=== PATIENT | male | born 1955 | race Caucasian/White ===

== ENCOUNTER → 2019-08-26 16:49 | Outpatient (CLI) | payer BC, SELFPAY ==
--- NOTE | ~2019-08-26 | XR_ITS ---
EXAMINATION: XR lumbar spine min 4V DATE: 08/26/2019 18:08 INDICATION: Sciatica, left-sided low back pain TECHNIQUE: Anteroposterior, lateral, and bilateral oblique views of the lumbar spine, and cone-down l ateral view of the lumbosacral junction were obtained.: AP view of the sacrum is also obtained. COMPARISON: None. FINDINGS: There is mild loss of intervertebral disc space height at L4-5 and L5-S1. The vertebral bod y heights are normal. There is no fracture. Small degenerative osteophytes project from the anterior endplates of multiple vertebral bodies. There is moderate facet osteoarthritis of the lower lumbar sp ine. IMPRESSION: 1. Mild lumbar spondylosis without acute findings. Reviewed, dictated and finalized at location A.
== END ==
PROVIDERS: PCP Family Medicine; Visit Provider Family Medicine
DX: M54.30 Sciatica, unspecified side (principal); M47.816 Spondylosis without myelopathy or radiculopathy, lumbar region
CPT/HCPCS: 72110

== ENCOUNTER 2019-09-18 06:42 | Observation (INO) | payer BC, SELFPAY ==
[2019-09-18 06:46] VITALS: BP 182/100; PULSE 87; RESP 20; TEMP 36.9; O2SAT 100
--- NOTE | 2019-09-18 07:22 | ED.BACK ---
HPI - Back Pain/Injury General Chief Complaint: Back Pain/Injury Stated Complaint: L HIP PAIN Time Seen by Provider: 09/18/19 07:01 History of Present Illness HPI Narrative: Patient presents with his for ongoing left sciatica. Started a month ago without injury. He initially had pain management and an x-ray. Then he had an MRI with Dr. Haines. It shows spinal stenosis at the lower lumbar area. He is on [place] and is not helping the pain. He is unable to lie to sleep he still has difficulty standing. The pain starts in his left hip goes down to the back of his knee calf and his foot has some tingling. He has had no urinary or fecal incontinence. He has had no urinary or fecal retention. He does have some constipation. 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 He is not able to work currently. He has not been sick denies fever cough chills and sweats. Appetite is good. Surgeries include circumcision tonsillectomy wisdom teeth. He does not smoke he occasionally drinks he does not do marijuana. MD elicited complaint: back pain Pertinent past history: prior back pain Onset (ago): month(s) Timing: constant Severity: severe Pain scale (0-10): 8 Similar Symptoms Previously: Yes Quality: aching Location: lumbar spine Radiation: left upper leg and left leg below the knee Exacerbating factors: movement and walking Relieving factors: none Related Data Home Medications Medication Instructions Recorded Confirmed fexofenadine-pseudoephedrine ER 1 tablet PO DAILY 08/26/19 08/26/19 180 mg-240 mg tablet,ext.release 24 hr Allergies Allergy/AdvReac Type Severity Reaction Status Date / Time latex Allergy Unknown Skin Verified 09/18/19 07:03 Reaction Review of Systems Review of Systems: Narrative: CONSTITUTIONAL: Denies fever, chills, or sweats. EYES: Denies visual changes, redness, or discharge. ENT: Denies rhinorrhea, congestion, sore throat, or otalgia. CARDIOVASCULAR: Denies chest pain, palpitations, or edema. RESPIRATORY: Denies cough or dyspnea. GASTROINTESTINAL: Denies abdominal pain, nausea, vomiting, or diarrhea. He does have constipation. GENITOURINARY: Denies dysuria or hematuria. SKIN: Denies rash or itching. MUSCULOSKELETAL: Denies back pain, joint pain, or myalgia. NEUROLOGIC: Denies headache, numbness, or weakness. Tingling in the left foot. PSYCHIATRIC: Denies anxiety or depression. PMF Past Medical History Medical History (Updated 09/18/19 @ 07:27 by Jennifer Michele MD) Sciatic nerve pain Surgical History Surgical History (Updated 09/18/19 @ 07:26 by Jennifer Michele MD) History of circumcision History of wisdom tooth extraction Family History Family History Sibling Family history of malignant neoplasm of bone Social History Social History (Updated 09/18/19 @ 07:26 by Jennifer Michele MD) Smoking status: Never smoker Alcohol intake: current Substance use: never Gender identity (if verbalized by the patient): Male Exam Narrative: Exam Narrative: GENERAL: Well-appearing, well-nourished, and in no acute distress. He is sitting in a forward leaning wheelchair appliance. Little spontaneous motion. HEAD: Normocephalic, atraumatic. EYES: PERRLA and EOMI. ENT: Nares clear, no rhinorrhea or epistaxis. Mucous membranes moist. NECK: Supple. CHEST: Clear to auscultation. No respiratory distress. HEART: Regular rate and rhythm. No murmur heard. Normal peripheral pulses. ABDOMEN: Soft, nontender, nondistended, normal active bowel sounds. EXTREMITIES: No edema. SKIN: Warm, dry, no rash. Scab on his left hand. NEURO: No focal deficits. Alert and oriented x3. PSYCH: Normal mood and affect. Course Reevaluation(s) Reevaluation #1: Saw the patient at 8:00 and the pain medicine has not really set in yet. Date: 09/18/19 Time: 08:02 Reevaluation #2: First reevaluation shows the patient to not be getting any
[2019-09-18] MEDS: HYDROMORPHONE HCL 1 MG/ML INJ IM ×3 (07:30→09:07)
[2019-09-18] MEDS: ONDANSETRON HCL ODT 4 MG TABLET PO ×2 (09:17→10:05)
[2019-09-18] MEDS: KETOROLAC (*BKC) 60 MG/2 ML VIAL 30 MG IM (10:02)
[2019-09-18 11:11] LABS: Basophils Percent Auto 0.1 % (0.2-1.2); Eosinophils Percent Auto 0.1 % (0-4.4); Hematocrit 47.6 % (42.0-52.0); Hemoglobin 16.7 g/dL (14.0-18.0); Immature Granulocyte Absolute 0.02 K/mm3 (0.00-0.031); Immature Granulocyte Percent A 0.3 % (0-0.5); Lymphocytes Absolute Auto 0.53 K/mm3 (0.9-3.2); Lymphocytes Percent Auto 7.5 % (18.3-44.2); Mean Corpuscular HGB Conc 35.1 g/dl (32-36); Mean Corpuscular Hemoglobin 32.1 pg (26-34); Mean Corpuscular Volume 91.5 fl (80-100); Mean Platelet Volume 9.9 fl (7.4-10.4); Monocytes Absolute Auto 0.3 K/mm3 (0.1-0.6); Monocytes Percent Auto 4.7 % (2.6-8.5); Neutrophils Absolute Auto 6.2 K/mm3 (1.3-6.7); Neutrophils Percent Auto 87.3 % (45.5-73.1); Platelet Count Result 203 k/mm3 (150-375); Red Cell Distribution Width 12.4 % (11.5-14.5); White Blood Count 7.1 K/mm3 (4.5-10.0)
[2019-09-18 11:20] VITALS: BP 183/96; PULSE 86; RESP 18; O2SAT 100
[2019-09-18 11:21] LABS: Alanine Aminotransferase 25 U/L (4-50); Albumin Level 4.8 g/dL (3.5-5.1); Alkaline Phosphatase 101 U/L (38-126); Aspartate Amino Transferase 27 U/L (17-59); Bilirubin,Total 0.5 mg/dL (0.2-1.3); Blood Urea Nitrogen 23 mg/dL (9-20); Calcium 9.1 mg/dL (8.4-10.2); Carbon Dioxide 27 mmol/L (22-30); Chloride 101 mmol/L (98-107); Estimated Glomerular Filt Rate > 60; Glucose 160 mg/dL (75-110); Potassium 4.6 mmol/L (3.4-5.0); Sodium 136 mmol/L (137-145)
[2019-09-18 11:53] VITALS: BP 212/85; PULSE 82; RESP 18; O2SAT 98
[2019-09-18 12:15] VITALS: BP 173/104; PULSE 74; RESP 16; TEMP 36.8; O2SAT 98; BMI 27.8
[2019-09-18 12:26] VITALS: BMI 27.8
--- NOTE | 2019-09-18 12:45 | PM.IMHP ---
H&P: HPI History of Present Illness Chief complaint: left sciatica Narrative: Justin Null is a 64 year old male was in his usual state of robust health until about 1 month ago. He awaken with some left buttock discomfort that radiated to his left calf. He had mild tingling in the left foot. This was intermittent initially. However worsened became more constant. Two weeks prior to admission he saw his primary doctor who prescribed a course of prednisone that did not help. An x-ray of the lumbosacral spine showed degenerative changes L4 and L5. 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 Because his pain persisted and MRI was scheduled. This was done 2 days prior to admission. It showed L5-S1 disease, the patient thinks disc herniation. This was done at [facility]. He was awaiting a referral for an epidural injection. However at 3:00 a.m. on the morning of admission he awakened with severe incapacitating pain in the left buttock radiating to the left calf with tingling to numbness in the left foot. This persisted. He was unable to get out of bed. His summoned EMS and he was transported to the emergency department. 30 mg of ketorolac and 3 mg of hydromorphone, given 1 mg IV sequentially, brought his pain down to a tolerable level. However he was still not ambulatory. Because of his severe pain and inability to ambulate he was admitted for pain management. Pain is aggravated by weight-bearing or movement of the left lower extremity and relieved partially at rest. It is described as deep and aching with intermittent shooting pain He denied any history of trauma to his back either recently or in the past. He did have an episode of sciatica several years ago but it lasted only 2 days and was not severe. Was on the same side. He denied saddle anesthesia, weakness, persistent numbness. He does have intermittent numb sensation in the left foot. However it passes quickly and subsides to tingling which is also intermittent. He denied any difficulty with incontinence of stool or urine or difficulty emptying his bladder. He does have mild constipation but is aware of that and is still able to pass stool. He denied chest pain, shortness of breath, edema, palpitations, dizziness, syncope, presyncope, abdominal pain, nausea vomiting, dysuria, frequency, hematochezia, melena, hematuria, rash, itching, visual changes, auditory changes, headache, fever, chills. Review of Systems Review of Systems: All systems reviewed & are unremarkable except as noted in HPI and below PMFSH Past Medical History Medical History (Updated 09/18/19 @ 12:53 by Cornel Lyles MD) Calculus of ureter Enlarged prostate without lower urinary tract symptoms (luts) Metabolic syndrome Pure hyperglyceridemia Sciatic nerve pain Seasonal rhinitis Unspecified hearing loss Surgical History Surgical History History of circumcision History of wisdom tooth extraction Family History Family History (Updated 09/18/19 @ 13:01 by Cornel Lyles MD) Sibling Family history of malignant neoplasm of bone Father , at 78 due to ruptured esophagus No problems noted. 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
--- NOTE | 2019-09-18 13:08 | PC.NURSE ---
admitted to room 234,and resting in bed without any complaints at this time., Instructed to call for assistance as needed call light in reach.,
[2019-09-18] MEDS: ENOXAPARIN 40 MG/0.4 ML SYRINGE SUB-Q (13:19)
[2019-09-18] MEDS: SODIUM CHLORIDE 0.9% IV 1,000 ML 150 ML IV CONT (13:30)
[2019-09-18 14:00] VITALS: BP 165/81; PULSE 84; RESP 18; TEMP 36.6; O2SAT 99
[2019-09-18] MEDS: BACLOFEN 5 MG TABLET PO ×2 (14:41→21:39)
[2019-09-18] MEDS: PROCHLORPERAZINE EDISYLATE 10 MG/2 ML VIAL IV PUSH (17:05)
[2019-09-18 22:00] VITALS: BP 170/93; PULSE 80; PULSE 87; RESP 16; TEMP 36.8; O2SAT 98
[2019-09-19 03:54] VITALS: BP 210/112; PULSE 81; RESP 18; TEMP 36.3; O2SAT 98
[2019-09-19 04:29] VITALS: PULSE 88
[2019-09-19] MEDS: METOPROLOL TARTRATE INJ 5 MG/5 ML VIAL IV PUSH (04:29)
[2019-09-19 05:47] LABS: Hemoglobin 14.5 g/dL (14.0-18.0); Mean Corpuscular HGB Conc 34.5 g/dl (32-36); Mean Corpuscular Hemoglobin 31.7 pg (26-34); Mean Corpuscular Volume 91.9 fl (80-100); Platelet Count Result 180 k/mm3 (150-375); Red Blood Count 4.57 M/mm3 (4.6-6.20); Red Cell Distribution Width 12.7 % (11.5-14.5); White Blood Count 5.6 K/mm3 (4.5-10.0)
[2019-09-19] MEDS: BACLOFEN 5 MG TABLET PO (05:50)
[2019-09-19 05:58] LABS: Blood Urea Nitrogen 22 mg/dL (9-20); Calcium 8.8 mg/dL (8.4-10.2); Carbon Dioxide 30 mmol/L (22-30); Chloride 104 mmol/L (98-107); Estimated CRCL calculation 70 ml/min; Estimated Glomerular Filt Rate > 60; Glucose 110 mg/dL (75-110); Sodium 135 mmol/L (137-145)
[2019-09-19 05:59] LABS: Hemoglobin A1C 5.8 % (<5.7)
[2019-09-19 06:00] VITALS: BP 168/84; PULSE 84; RESP 16; TEMP 36.3; O2SAT 97
[2019-09-19] MEDS: AMLODIPINE BESYLATE 2.5 MG TABLET PO (08:16)
--- NOTE | 2019-09-19 11:14 | PM.DS ---
DS: Diagnosis Admitting Diagnosis Admitting Diagnosis: Sciatica, left side Discharge Diagnosis (1) Left sided sciatica: Code(s): M54.32 - Sciatica, left side Status: Acute Assessment and Plan: This is most likely due to herniated L5-S1 disc Prior imaging results from 09/15 are not yet in his chart, although they should be available 09/18 Limit weight-bearing to left lower extremity Avoid lifting or bending at the waist Advised that given his lack of neurologic deficit it would be in his best interest to avoid interventions unless he has uncontrolled pain or new onset of neurologic deficits Ketorolac 30 mg IV q.6 hours scheduled while hospitalized, transitioned to diclofenac Na 75mg BID at discharge Hydromorphone 1 mg IV q.3 hours p.r.n. pain while hospitalized transitioned to Percocet 10mg PO q 4h prn Baclofen 5mg PO q 8 hours (2) Hypertension, essential: Code(s): I10 - Essential (primary) hypertension Status: Acute Assessment and Plan: Added amlodipine 2.5mg daily (avoided ACEI, ARB, Diuretics due to NSAID use) Low salt diet (3) Impaired glucose tolerance: Code(s): R73.02 - Impaired glucose tolerance (oral) Status: Acute Assessment and Plan: A1c 5.8% c/s IGT Diabetic diet (4) Pure hyperglyceridemia: Code(s): E78.1 - Pure hyperglyceridemia Status: Acute Assessment and Plan: Heart healthy diet DS: Summary Hospital Course Reason for hospitalization: LLE pain Hospital Course: Admitted with LLE pain, buttock to calf, with tingling in foot. Unable to ambulate. Failed outpatient steroids, narcotics. Treated with ketoralac, baclofen, hydromorphone, bedrest. Pain improved overngith. Able to ambulate with crutches with PT stand by assist. Tolerated diet. Status at Discharge Overall status at discharge: patient is progressing back to baseline Time Spent with Patient Time attestation: Total time spent providing and/or coordinating discharge services: Time spent: Greater than 30 minutes Exam Narrative: Exam Narrative: HEENT: EOMI, PERRL, sclerae nonicteric, pharyngeal mucosa pink and intact NECK: No JVD, adenopathy, or thyromegaly CHEST: Clear to auscultation. Normal effort. HEART: NL S1/S2, regular, no murmur ABDOMEN: BS+, soft, nontender, no mass, no bruits EXTREMITIES: No cyanosis, edema, or clubbing NEUROLOGIC: CN intact and symmetric to inspection. The tender reflexes intact at both biceps and triceps. Intact at both knees. Trace at both ankles. Babinski's downgoing. Sensation to light touch intact at both great toes and 5th toes bilaterally. MUSCULOSKELETAL: Tone and strength symmetric. Education Professional strength intact bilaterally. Quadriceps strength intact and symmetric. Dorsiflexion and plantar flexion intact bilaterally and symmetric. Straight leg raising is negative on the right to 90 degrees and positive on the left at 45? with pain in the left calf PSYCH: Alert. Oriented to person, place, and time. DS: Data Data Completed and Pending Labs on day of discharge: Labs from last 24 hours 09/19/19 09/19/19 09/19/19 05:04 05:04 05:04 WBC 5.6 RBC 4.57 L Hgb 14.5 Hct 42.0 MCV 91.9 MCH 31.7 MCHC 34.5 RDW 12.7 Plt Count 180 MPV 10.0 Sodium 135 L Potassium 4.0 Chloride 104 Carbon Dioxide 30 BUN 22 H Creatinine 1.00 Estim Creat Clear Calc 70 Estimated GFR > 60 Glucose 110 Hemoglobin A1c 5.8 H Calcium 8.8 Total Bilirubin AST ALT Alkaline Phosphatase Total Protein Albumin 09/18/19 10:58 WBC RBC Hgb Hct MCV MCH MCHC RDW Plt Count MPV Sodium 136 L Potassium 4.6 Chloride 101 Carbon Dioxide 27 BUN 23 H Creatinine 0.90 Estim Creat Clear Calc Not Reportable Estimated GFR > 60 Glucose 160 H Hemoglobin A1c Calcium 9.1 Total Bilirubin 0.5 AST 27 ALT 25 Alkaline Phosphatase 101 Total Protein 8.0 Albumin 4.
== END 2019-09-19 12:25 | disposition home or self-care (01) ==
LOC: ANHED 11:10 → ANH2MED 11:27
PROVIDERS: Admitting Provider Internal Medicine; Emergency Provider Emergency Medicine; PCP Family Medicine; Visit Provider Internal Medicine
DX: M54.32 Sciatica, left side (principal); I10 Essential (primary) hypertension; R73.02 Impaired glucose tolerance (oral); E78.1 Pure hyperglyceridemia
CPT/HCPCS: 36415; 80048; 80053; 83036; 85025; 85027; 96361; 96372; 96374; 96375; 97161; 99285; A9270; G0378; J0780; J1170; J1650; J1885; J7030

== ENCOUNTER 2020-03-16 01:55 | Outpatient (CLI) | payer BC, SELFPAY ==
[2020-03-16 19:52] LABS: SARS-CoV-2 RNA PCR Negative
== END 2020-03-16 01:56 | disposition home or self-care (01) ==
LOC: ANHCOVIDDT 01:55
PROVIDERS: PCP Family Medicine; Visit Provider Internal Medicine Gastroenterology
DX: Z01.812 Encounter for preprocedural laboratory examination (principal); Z20.828 Contact with and (suspected) exposure to other viral communicable diseases
CPT/HCPCS: 87635; C9803; U0003

== ENCOUNTER 2020-03-19 00:38 | Day surgery (SDC) | payer BC, SELFPAY ==
[2020-03-13 13:30] VITALS: BMI 28.3
[2020-03-19 07:49] VITALS: BP 140/101; PULSE 68; RESP 16; TEMP 36.9; O2SAT 98; BMI 28.0
[2020-03-19] MEDS: LACTATED RINGERS 1,000 ML 150 ML IV CONT (08:03)
--- NOTE | 2020-03-19 08:19 | WPDGICN ---
Assessment and Plan Assessment and plan (1) Encounter for screening colonoscopy: Code(s): Z12.11 - Encounter for screening for malignant neoplasm of colon Status: Acute Assessment and Plan: Patient appears to be at average risk for colon polyps. Plan is for screening colonoscopy today. GI Consult Note Consult date/time: 03/19/20 08:19 HPI: Justin Null is a 64 year old male Seen in evaluation at the request of Dr. Haines. Neoplasia screening advised because of patient's age. Patient's current weight appetite bowel movements are normal. He has been in general good health. Family history is noncontributory. Review of Systems Review of Systems: All systems reviewed & are unremarkable except as noted in HPI and below PMFSH Past Medical History Medical History (Updated 03/19/20 @ 08:20 by Darwin Aden MD) Calculus of ureter Enlarged prostate without lower urinary tract symptoms (luts) Hypertension, essential Impaired glucose tolerance Metabolic syndrome Overweight (BMI 25.0-29.9) Pure hyperglyceridemia Sciatic nerve pain Seasonal rhinitis Unspecified hearing loss Surgical History Surgical History History of circumcision History of wisdom tooth extraction Family History Family History Sibling Family history of malignant neoplasm of bone Father , at 78 due to ruptured esophagus No problems noted. Mother , at 94 due to leukemia Leukemia Social History Social History Smoking status: Never smoker Alcohol intake: current Drinks per week: 0 Alcohol use details: MAY HAVE A DRINK A COUPLE TIMES A YEAR. 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 Vital signs stable. HEENT exam unremarkable. Lungs are clear to auscultation and percussion. Heart is without murmur or extra sounds. Abdominal exam bowel sounds are present soft nontender with no organomegaly. Digital external rectal exam is normal.
--- NOTE | 2020-03-19 08:52 | P.PNAN_ITS ---
Anes - Initial Pre Proc Eval Procedure: Operation Date: 03/19/20 09:00 Proposed Procedures p Screening Colonoscopy - Darwin Aden MD Date/Time: 03/19/20 08:52 Surgeon: Darwin Aden MD Pre Op Diagnosis: Neoplasm Screening Patient Data Age: 64 Gender: M Height: 5 ft 11 in Weight: 91.1 kg Last Vital Signs Temp 98.5 F 03/19/20 07:49 Pulse 68 03/19/20 07:49 Resp 16 03/19/20 07:49 BP 140/101 H 03/19/20 07:49 Pulse Ox 98 03/19/20 07:49 Allergies Allergy/AdvReac Type Severity Reaction Status Date / Time latex Allergy Mild Skin Verified 03/19/20 07:48 Reaction Home Medications Medication Instructions Recorded Confirmed Type lisinopril 5 mg tablet 5 mg PO DAILY #90 tablet 02/08/20 03/19/20 Rx Patient hx anesthesia problems: none Family hx anesthesia problems: none PMFSH Past Medical History Medical History (Updated 03/19/20 @ 08:20 by Darwin Aden MD) Calculus of ureter Enlarged prostate without lower urinary tract symptoms (luts) Hypertension, essential Impaired glucose tolerance Metabolic syndrome Overweight (BMI 25.0-29.9) Pure hyperglyceridemia Sciatic nerve pain Seasonal rhinitis Unspecified hearing loss Surgical History Surgical History History of circumcision History of wisdom tooth extraction Family History Family History Sibling Family history of malignant neoplasm of bone Father , at 78 due to ruptured esophagus No problems noted. Mother , at 94 due to leukemia Leukemia Social History Social History Smoking status: Never smoker Alcohol intake: current Drinks per week: 0 Alcohol use details: MAY HAVE A DRINK A COUPLE TIMES A YEAR. 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 Questions were solicited and answers provided to the satisfaction of the patient/family/POA.
[2020-03-19 09:15] VITALS: BP 114/74; PULSE 83; RESP 20; O2SAT 98
[2020-03-19 09:25] VITALS: BP 122/71; PULSE 80; RESP 20; O2SAT 98
[2020-03-19 09:35] VITALS: BP 116/76; PULSE 70; RESP 16; O2SAT 99
[2020-03-19 09:45] VITALS: BP 127/80; PULSE 72; RESP 18; O2SAT 100
== END 2020-03-19 09:57 | disposition home or self-care (01) ==
PROVIDERS: PCP Family Medicine; Visit Provider Internal Medicine Gastroenterology
PROC: 0DJD8ZZ Inspection of Lower Intestinal Tract, Via Natural or Artificial Opening Endoscopic (ICD-10-PCS; CPT 45378; principal; 2020-03-19 09:00)
DX: Z12.11 Encounter for screening for malignant neoplasm of colon (principal); K64.8 Other hemorrhoids; K57.30 Diverticulosis of large intestine without perforation or abscess without bleeding; N40.0 Benign prostatic hyperplasia without lower urinary tract symptoms; I10 Essential (primary) hypertension; E78.1 Pure hyperglyceridemia
CPT/HCPCS: 45378; J2704; J7120

== ENCOUNTER 2020-07-18 10:33 | Outpatient (CLI) | payer OTHER, MEDICARE, SELFPAY | END 2020-07-18 10:34 | disposition home or self-care (01) | LOC: ANHCOVIDVC 10:34 | PROVIDERS: PCP Family Medicine | DX: Z23 Encounter for immunization (principal) | CPT/HCPCS: 0001A; 91300 ==

== ENCOUNTER 2020-08-08 10:30 | Outpatient (CLI) | payer OTHER, MEDICARE, SELFPAY | END 2020-08-08 10:31 | disposition home or self-care (01) | LOC: ANHCOVIDVC 10:30 | PROVIDERS: PCP Family Medicine | DX: Z23 Encounter for immunization (principal) | CPT/HCPCS: 0002A; 91300 ==

== ENCOUNTER → 2022-04-10 13:41 | Outpatient (CLI) | payer OTHER, SELFPAY ==
--- NOTE | ~2022-04-10 | CT_ITS ---
EXAMINATION: CT abdomen pelvis w con DATE: 04/10/2022 14:07 INDICATION: Anorexia, loss of appetite, abnormal weight loss. TECHNIQUE: Computed tomography (CT) of the abdomen and pelvis was performed with 100 CC Omnipaque 350 intravenous contrast. Automated exposure control and iterative reconstruction technique were employe d. Exam dose: 872.96 mGy-cm total exam DLP. COMPARISON: 11/20/2016 CT abdomen pelvis FINDINGS: The lung bases are clear. Normal heart size. No pericardial or pleural effusion. Small post erior hepatic dome cyst and small lateral segment left hepatic lobe cyst, unchanged since 11/20/2016. No hepatic space-occupying mass lesion is noted otherwise. There are some calcifications in the wall or deep dependent lumen at the proximal gallbladder which a re new findings since 11/20/2016. No gallbladder wall thickening or pericholecystic fluid or fat stran ding is noted. No bile duct or pancreatic duct dilatation. No pancreatic mass lesion or calcification . Normal splenic size. A couple of splenules are noted. New 9.5 x 16 mm right adrenal soft tissue mass since 11/20/2016. Normal left adrenal gland. No renal mass lesion or urinary tract calculus or hydroureteronephrosis. There is mild prostate enlargement. The urinary bladder is unremarkable. Normal appendix. Diverticulosis primarily of the sigmoid and descending colon; no CT evidence of diverticulitis. No basilio wel obstruction, bowel wall thickening, pneumatosis or intraperitoneal free air is detected. There is atherosclerotic calcification but normal caliber of the abdominal aorta. No intraperitoneal or retroperitoneal or pelvic mass lesion or adenopathy or ascites. Small bilateral fat-containing inguinal hernias and very small fat-containing umbilical hernia. Lytic lesion of the anterior right sixth rib. 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 Particular extensive destruction is noted at the T12 vertebral body with soft tissue tumor projecting into the thoracic spinal canal IMPRESSION: Extensive osteolytic lesions of the axial skeleton consistent with metastatic disease. 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 Diverticulosis of the colon; no evidence of diverticulitis Normal appendix Mild prostate enlargement Reviewed, dictated and finalized at Location A. Reviewed, dictated and finalized at location B. L BUGGY OPERATOR IMPRESSION: Extensive osteolytic lesions of the axial skeleton consistent with metastatic disease. New 9.5 x 16 mm right adrenal mass since 11/20/2016, likely an adrenal metastasi s. Diverticulosis of the colon; no evidence of diverticulitis Normal appendix Mild prostate enlargement
[2022-04-10 14:00] LABS: Estimated Glomerular Filt Rate > 60
== END ==
PROVIDERS: PCP Family Medicine; Visit Provider Family Medicine
DX: R63.0 Anorexia (principal); R63.4 Abnormal weight loss; M89.9 Disorder of bone, unspecified; E27.9 Disorder of adrenal gland, unspecified; K57.30 Diverticulosis of large intestine without perforation or abscess without bleeding; N40.0 Benign prostatic hyperplasia without lower urinary tract symptoms
CPT/HCPCS: 74177; Q9967

== ENCOUNTER 2022-04-15 11:05 | Outpatient (CLI) | payer OTHER, SELFPAY ==
--- NOTE | ~2022-04-15 | US_ITS ---
EXAMINATION: US thyroid DATE: 04/15/2022 11:59 INDICATION: Secondary malignant neoplasm of bone. TECHNIQUE: Multiple ultrasound images of the thyroid were obtained. COMPARISON: Chest CT 04/15/2022 FINDINGS: The right thyroid lobe measures 3.3 x 1.2 x 1.8 cm. The left thyroid lobe measures 3.1 x 0.9 x 1.5 c m. There is normal echotexture and echogenicity throughout the thyroid gland. No discrete nodules id entified. Normal vascular flow is present. IMPRESSION: 1. Normal thyroid. Reviewed, dictated and finalized at location A. [employer]GE LOADING IMPRESSION: 1. Normal thyroid.
--- NOTE | ~2022-04-15 | CT_ITS ---
CT Scan of the Chest without Contrast: Clinical Indication: Lung cancer Technique: Contiguous sections were acquired throughout the chest without intravenous contrast. Dose reduction technique was used on this scan by utilizing automated exposure control and iterative recon struction technique. The dose-length product (DLP) was 218.91 mGy-cm. Findings: There is no evidence of any significant mediastinal, hilar or axillary lymphadenopathy. The mediastin al soft tissues appear normal. There is no evidence of pleural or pericardial effusion. 5 mm nodule noted the lingula (axial image 78). No other pulmonary nodule or consolidation seen. Images through the upper abdomen reveal a 1.1 x 1.6 cm right adrenal nodule, as seen on recent abdomi nal pelvic CT dated 04/10/2022. Small calcified gallstones noted. Numerous scattered lytic lesions are present in the spine with additional expansile lytic lesion of t he right sixth rib. Probable small lytic lesion noted in the lateral left eighth rib. Subtle lytic le reuben noted in the sternum. Impression: 5 mm nodule at the lingula. This is indeterminate. Given the extent of metastatic disease, primary le reuben is unlikely, however small metastasis cannot be excluded. Multiple lytic osseous metastases, as noted above. Right adrenal nodule, as seen on recent abdominal pelvic CT. Metastasis is a consideration until prov en otherwise. Reviewed, dictated and finalized at location [] X OPERATOR Impression: 5 mm nodule at the lingula. This is indeterminate. Given the extent of metastat ic disease, primary lesion is unlikely, however small metastasis cannot be excl uded. Multiple lytic osseous metastases, as noted above. Right adrenal nodule, as seen on recent abdominal pelvic CT. Metastasis is a co nsideration until proven otherwise.
== END 2022-04-15 11:06 | disposition home or self-care (01) ==
PROVIDERS: PCP Family Medicine; Visit Provider Family Medicine
DX: C79.51 Secondary malignant neoplasm of bone (principal); C80.1 Malignant (primary) neoplasm, unspecified; R91.8 Other nonspecific abnormal finding of lung field
CPT/HCPCS: 71250; 76536

== ENCOUNTER 2022-04-18 15:26 | Outpatient (CLI) | payer OTHER, SELFPAY ==
[2022-04-18 15:38] LABS: Basophils Percent Auto 0.2 % (0.2-1.2); Eosinophils Percent Auto 0.2 % (0-4.4); Hematocrit 36.5 % (42.0-52.0); Hemoglobin 10.9 g/dL (14.0-18.0); Immature Granulocyte Absolute 0.05 K/mm3 (0.00-0.031); Immature Granulocyte Percent A 0.4 % (0-0.5); Lymphocytes Absolute Auto 0.87 K/mm3 (0.9-3.2); Lymphocytes Percent Auto 7.5 % (18.3-44.2); Mean Corpuscular HGB Conc 29.9 g/dl (32-36); Mean Corpuscular Volume 80.2 fl (80-100); Mean Platelet Volume 8.3 fl (7.4-10.4); Monocytes Absolute Auto 0.8 K/mm3 (0.1-0.6); Neutrophils Absolute Auto 9.9 K/mm3 (1.3-6.7); Neutrophils Percent Auto 84.7 % (45.5-73.1); Platelet Count Result 537 k/mm3 (150-375); Red Blood Count 4.55 M/mm3 (4.6-6.20); Red Cell Distribution Width 18.3 % (11.5-14.5); White Blood Count 11.7 K/mm3 (4.5-10.0)
[2022-04-18 15:47] LABS: Platelet Estimate Increased (Adequate); Schistocytes None Seen (NORMAL)
[2022-04-18 15:48] LABS: Poikilocytosis 1+ (NORMAL); Target Cells 1+ (NORMAL)
[2022-04-18 16:22] LABS: Alanine Aminotransferase 33 U/L (6-50); Albumin Level 3.6 g/dL (3.5-5.1); Alkaline Phosphatase 224 U/L (38-126); Anion Gap 6 mmol/L (8-16); Aspartate Amino Transferase 31 U/L (17-59); Bilirubin,Total 0.6 mg/dL (0.2-1.3); Blood Urea Nitrogen 28 mg/dL (9-20); Carbon Dioxide 29 mmol/L (22-30); Chloride 99 mmol/L (98-107); Estimated Glomerular Filt Rate > 60; Glucose 113 mg/dL (65-110); Potassium 4.4 mmol/L (3.4-5.0); Sodium 134 mmol/L (137-145)
[2022-04-18 16:29] LABS: Immunoglobulin A 150 mg/dL (70-400); Immunoglobulin G 1231 mg/dL (700-1600); Immunoglobulin M 98 mg/dL (40-230)
[2022-04-18 16:52] LABS: Prostate Specific Antigen 0.6 ng/mL (< OR = 4.0)
[2022-04-22 15:33] LABS: Abnormal Protein Band 1 0.7 g/dL; Albumin 2.8 g/dL (3.8-4.8); Alpha 1 Globulin 0.7 g/dL (0.2-0.3); Alpha 2 Globulin 1.6 g/dL (0.5-0.9); Beta 1 Globulin 0.5 g/dL (0.4-0.6); Gamma Globulin 1.2 g/dL (0.8-1.7); Protein, Total 7.1 g/dL (6.1-8.1)
[2022-04-23 05:02] LABS: Kappa\\Lambda Light Chains 0.84 (0.26-1.65); Lambda Light Chain 38.4 mg/L (5.7-26.3)
== END 2022-04-18 15:27 | disposition home or self-care (01) ==
LOC: ANHLAB 15:26
PROVIDERS: PCP Family Medicine; Visit Provider Internal Medicine Hematology & Oncology
DX: C79.51 Secondary malignant neoplasm of bone (principal)
CPT/HCPCS: 36415; 80053; 82784; 83883; 84153; 84155; 84165; 85025

== ENCOUNTER 2022-05-01 07:31 | Outpatient (CLI) | payer OTHER, SELFPAY ==
--- NOTE | ~2022-05-01 | PE_ITS ---
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 10.373 mCi of 18-fluorodeoxyglucose (18-FDG) was admini stered i.v. Low dose computed tomography (CT) images were acquired from the base of the brain to the proximal thighs for attenuation correction and anatomic localization. Positron emission tomography (P ET) images were acquired in the same distribution beginning 63 minutes after injection. Images includ ing fused PET/CT images were reconstructed in axial, coronal, and sagittal planes. Automated exposure control technique was employed. The dose-length product was 620.60 mGy-cm. COMPARISON: CT dated 04/10/2022 and 04/15/2022 FINDINGS: Musculoskeletal: There are numerous scattered FDG avid mixed lytic and sclerotic bone lesion throughout the axial and appendicular skeleton. Several of the lesions appear expansile including at at the anterior sixth rib s, along the margin of a few of the vertebral bodies and along the left inferior pubic ramus. Maximum SUV values for the majority of the lesions range between 13-18.5. Head/neck: There is symmetric increased activity in the nares, oral cavity, palatine sublingual and submandibula r glands, laryngeal muscles and ocular muscles without CT correlate, likely physiologic. No pathologi gabby enlarged cervical lymphadenopathy or nonskeletal suspicious foci of increased FDG uptake in the visualized head or neck. Chest: No abnormal increased FDG uptake associated with the 5 mm nodule at the lingula or a small lenticular intrafissural lymph node along the left major fissure. No other suspicious pulmonary nodules. Small region of groundglass opacity in the left lower lobe which could be due to atelectasis, developing pn eumonia or pulmonary edema. No pleural effusion. Heart size is normal. No pericardial effusion. No pa thologically enlarged or FDG avid thoracic lymphadenopathy. Bilateral gynecomastia. No other suspicio us nonskeletal foci of abnormal FDG uptake. Abdomen/pelvis/proximal thighs: Physiologic renal accumulation and excretion of FDG activity in the kidneys, bladder and along portio ns of ureters. Normal degree and heterogenous pattern of increased uptake throughout the liver withou t radiologic correlate or dominant FDG avid lesion. There are couple small calcified gallstones at th e neck of the otherwise normal-appearing gallbladder. The pancreas, spleen and left adrenal gland are normal. There is increased FDG uptake with maximal SUV of 7.5 cm with the previously noted 17 x 11 m m right adrenal nodule also suspicious for metastatic disease. Mild uptake scattered throughout the b owels without radiologic correlate, also likely physiologic. There are few scattered colonic divertic camille without adjacent inflammatory stranding to suggest diverticulitis. Prostatomegaly measuring 4.4 x 3.4 cm. No other nonskeletal abnormal foci of increased FDG uptake or pathologically enlarged lympha denopathy in the abdomen, pelvis or proximal thighs. IMPRESSION: 1. There is prominent FDG avid mixed lytic and blastic bone lesions which could represent multiple my eloma or metastatic disease. 2. Somewhat less intense moderate FDG uptake associated with a 17 x 11 mm right adrenal nodule also s uspicious for metastatic disease. 2. No other lesions identified suspicious for primary malignancy. Correlate with results from the jose m nned bone biopsy. Reviewed, dictated and finalized at location A. AND LINK ASSEMBLY SUPERVISOR IMPRESSION: 1. There is prominent FDG avid mixed lytic and blastic bone lesions which could represent multiple myeloma or metastatic disease. 2. Somewhat less intense moderate FDG uptake associated with a 17 x 11 mm right a
[2022-05-01 08:39] LABS: Glucose Point of Care 116 mg/dl (65-105)
== END 2022-05-01 07:32 | disposition home or self-care (01) ==
PROVIDERS: PCP Family Medicine; Visit Provider Internal Medicine Hematology & Oncology
DX: C80.1 Malignant (primary) neoplasm, unspecified (principal); C79.51 Secondary malignant neoplasm of bone; E27.9 Disorder of adrenal gland, unspecified
CPT/HCPCS: 78815; A9552

== ENCOUNTER 2022-05-02 08:58 | Outpatient (CLI) | payer OTHER, SELFPAY ==
--- NOTE | ~2022-05-02 | CT_ITS ---
EXAMINATION: CT bx bone deep ORDER COMPLETED DATE: 05/02/2022 11:47 INDICATION: Cancer metastatic to bone TECHNIQUE: A time-out was performed to verify the patient's name, date of , and procedure to b e performed. The procedure including the risks, benefits, and alternatives was discussed with the pat ient. Risks discussed included bleeding and infection. The patient understood the risks and agreed to proceed. The skin overlying the posterior left sacral ala was prepped and draped in usual sterile fa shion. Anesthetic was administered with 1% lidocaine subcutaneously. An 8 gauge needle was then inser dmitry into the large lytic lesion in the left sacral ala at the level between the left S1 and S2 icer machine ior neural foramina roots utilizing CT guidance. 2 core bone marrow biopsy were obtained. There were no immediate complications. The dose-length product was 125.43 mGy-cm. FINDINGS: CT images demonstrate the biopsy needle positioned along the posterior cortex of the left sacral ala overlying a large FDG avid lytic lesion. IMPRESSION: 1. Successful CT-guided biopsy of a large lytic bone lesion in the left sacral ala. Reviewed, dictated and finalized at location A. HER ALL ROUND
[2022-05-02 11:37] VITALS: BP 97/79; PULSE 95; RESP 16
[2022-05-02 11:43] VITALS: BP 128/80; PULSE 108; RESP 21; O2SAT 100
[2022-05-02 12:05] VITALS: BP 103/63; PULSE 92; RESP 16
[2022-05-02 12:35] VITALS: BP 109/63; PULSE 89; RESP 16
[2022-05-02 13:05] VITALS: BP 106/61; PULSE 87; RESP 14
[2022-05-02 13:39] VITALS: BP 117/63; PULSE 90; RESP 16
--- NOTE | 2022-05-02 13:40 | SUR.PHASEII ---
DR KHOURY NOTIFIED OF PATIENT DISCHARGE
== END 2022-05-02 13:46 | disposition home or self-care (01) ==
PROVIDERS: Radiology Diagnostic Radiology; PCP Family Medicine; Visit Provider Internal Medicine Hematology & Oncology
PROC: (CPT 77012; principal; 2022-05-02 11:00)
DX: C79.51 Secondary malignant neoplasm of bone (principal)
CPT/HCPCS: 20225; 87556; 88307; 88311; 88312; 88323; 88341; 88342

== ENCOUNTER 2022-05-12 11:08 | Outpatient (CLI) | payer OTHER, SELFPAY ==
[2022-05-14 12:22] LABS: NIL 0.04 IU/mL; Quantiferon TB Plus, 1T NEGATIVE (NEGATIVE); TB1-NIL <0.00 IU/mL; TB2-NIL <0.00 IU/mL
== END 2022-05-12 11:09 | disposition home or self-care (01) ==
LOC: ANHGOSHLAB 11:10
PROVIDERS: PCP Family Medicine; Visit Provider Family Medicine
DX: C80.1 Malignant (primary) neoplasm, unspecified (principal); C79.51 Secondary malignant neoplasm of bone
CPT/HCPCS: 36415; 86480

== ENCOUNTER 2022-06-20 09:11 | Inpatient (IN) | payer OTHER, SELFPAY ==
[2022-06-20] VITALS (25 sets, daily range): BP systolic 133–172; BP diastolic 79–98; PULSE 93–141; RESP 13–20; TEMP 36.5–37; O2SAT 99–100; BMI 20.7
--- NOTE | ~2022-06-20 | BM_ITS ---
EXAMINATION: CCL bone marrow asp w bx diag ORDER COMPLETED DATE: 06/24/2022 09:26 INDICATION: Low back pain . Pathologic fracture with multiple lytic bone lesions suspicious for eithe r metastatic disease or tuberculosis osteomyelitis.. TECHNIQUE: A time-out was performed to verify the patient's name, date of , and procedure to b e performed. The procedure including the risks and benefits was discussed with the patient. Risks dis cussed included bleeding, infection, nerve injury and allergic reaction. The patient understood the r isks and agreed to proceed. The skin overlying the right posterior iliac spine was prepped and draped in usual sterile fashion. Anesthetic was administered with 1% lidocaine subcutaneously. An 11 gauge needle was inserted into the right ilium with fluoroscopic guidance. Bone marrow was aspirated. An 8 gauge needle was then inserted into the right ilium with fluoroscopic guidance. A core bone marrow b iopsy was obtained. The needle was removed and the entry site was cleaned and dressed. There were no immediate complications. A total of 1 fluoroscopic images were recorded. Fluoroscopy exposure time w as 0.1 minutes. FINDINGS: Real-time fluoroscopy demonstrates the biopsy needle tip overlying the right posterior lily c spine. IMPRESSION: 1. Successful fluoroscopic guided bone marrow aspiration. 2. Successful fluoroscopic guided bone marrow biopsy. Reviewed, dictated and finalized at location A. OR IT RECRUITER
--- NOTE | ~2022-06-20 | MR_ITS ---
MRI of the cervical spine Clinical History: Lower limb paralysis, metastatic disease Technique: Axial T2-weighted and gradient images, and sagittal T1-weighted, T2-weighted, and STIR marcel ges were acquired. Following intravenous administration of 13 cc MultiHance gadolinium, T1-weighted f at-sat imaging was performed in the axial and sagittal planes. Findings: There is no fracture or subluxation of the cervical spine. Vertebral bodies maintain normal height and alignment. There are STIR hyperintense, T1 hypointense lesions scattered in the cervical spine, most notably involving the C3, T1, and T2 vertebral bodies, consistent with metastatic disease . Probable small lesion present in the C2 vertebral body. There is an additional lesion involving the right C2 pedicle/lamina. At C2-C3, there is no disc bulge or herniation. No spinal canal stenosis, cord compression, or neural foraminal narrowing. At C3-C4, there is minimal disc osteophyte, which. No spinal canal stenosis, cord compression, or karen ral foraminal narrowing. At C4-C5, disc osteophyte complex results in minimal canal stenosis, without hui cord compression. There is probable bilateral neural foraminal narrowing, left worse than right. At C5-C6, there is minimal disc osteophyte complex, with probable minimal canal stenosis but no hui cord compression. There is bilateral neural foraminal narrowing, left worse than right. At C6-C7, there is no disc bulge or herniation. No spinal canal stenosis, cord compression, or neural foraminal narrowing. No abnormal signal seen in the spinal cord itself. No epidural extension of disease identified. No pr evertebral soft tissue swelling. Postcontrast images demonstrate enhancement of the osseous metastatic lesions. No abnormal/suspicious soft tissue enhancement is evident. Impression: Osseous metastatic disease in the cervical spine, as detailed above. No fracture or epidural extensio n of disease identified. Mild degenerative spondylosis, as detailed above. Reviewed, dictated and finalized at location M. TRICAL CONTROLS DESIGNER Impression: Osseous metastatic disease in the cervical spine, as detailed above. No fractur e or epidural extension of disease identified. Mild degenerative spondylosis, as detailed above.
--- NOTE | ~2022-06-20 | XR_ITS ---
EXAMINATION: XR chest 1V portable INDICATION: Weakness TECHNIQUE: Portable AP chest at 1214 hours COMPARISON: CT from today FINDINGS: Bilateral pulmonary nodules are noted. Known osseous metastatic disease is not well demonst rated due to exposure. The cardiac mediastinal silhouette is normal. No pleural effusion or pneumotho rax. IMPRESSION: 1. Multiple pulmonary nodules. No acute cardiopulmonary abnormality. Reviewed, dictated and finalized at location B. ACE INSTALLER HELPER
--- NOTE | ~2022-06-20 | CT_ITS ---
EXAMINATION: CTA chest PE abdomen pel DATE: 06/20/2022 11:54 INDICATION: Back pain, weakness TECHNIQUE: Computed tomography angiography (CTA) of the chest was performed with 100 mL Omnipaque-350 intravenous contrast timed to evaluate the pulmonary arteries. Subsequent postcontrast images of the abdomen and pelvis are obtained. Coronal maximum intensity projection 3D-reconstructions were create d by the technologist. The dose-length product (DLP) was 697.76 mGy-cm. Automated exposure control an d iterative reconstruction technique were employed. COMPARISON: 04/15/2022, 04/10/2022 FINDINGS: CTA CHEST: The pulmonary arteries are well-opacified. No pulmonary embolism is identified. There has been interval development of multiple pulmonary nodules throughout all lobes of the lungs, the larges t of which measures 9 mm in the right upper lobe abutting the minor fissure. There is mild atelectasi s. The heart size is normal. No pathologically enlarged thoracic lymph nodes are identified. There ar e widespread lytic and sclerotic metastases involving the thoracic spine, ribs, sternum and scapulae which demonstrate interval worsening. There are also multiple new and worsening pathologic fractures in the spine and ribs ABDOMEN/PELVIS CT: Stable hypoattenuating lesions of the liver suggestive of cysts. The spleen, pancr eas, and left adrenal gland are normal. A 2 cm mass of the right adrenal gland has increased in size. Stones are present in the nondistended gallbladder. Cysts of the kidneys measure up to 9 mm on the l eft. No pathologically enlarged abdominal or pelvic lymph nodes are identified. No free intraperitone al gas or evidence of bowel obstruction. There are widespread lytic and sclerotic metastases involvin g nearly all of the visualized osseous structures. Multiple pathologic fractures are present which de monstrate interval worsening. IMPRESSION: 1. No pulmonary embolus or acute cardiopulmonary abnormality identified. 2. No acute visceral findings of the abdomen or pelvis. 3. Interval worsening of widespread metastatic disease as evidenced by new and worsening metastases i nvolving the axial and appendicular skeleton, worsening pathologic fractures, and multiple new pulmon bob nodules. Reviewed, dictated and finalized at location B. R ATTENDANT IMPRESSION: 1. No pulmonary embolus or acute cardiopulmonary abnormality identified. 2. No acute visceral findings of the abdomen or pelvis. 3. Interval worsening of widespread metastatic disease as evidenced by new and worsening metastases involving the axial and appendicular skeleton, worsening p athologic fractures, and multiple new pulmonary nodules.
--- NOTE | ~2022-06-20 | MR_ITS ---
EXAMINATION: MR lumbar spine wo/w con DATE: 06/21/2022 13:39 INDICATION: acute lower extremity paralysis . TECHNIQUE: Magnetic resonance imaging (MRI) of the lumbar spine was performed without and with 13 mL MultiHance intravenous contrast. Sequences included sagittal T2-weighted FSE, sagittal T2-weighted FS FSE, sagittal T1-weighted FSE, and axial T2-weighted FSE. COMPARISON: X-ray lumbar spine 08/26/2019 FINDINGS: The last fully formed and hydrated disc is designated L5-S1. Diffuse enhancing marrow lesio ns involving multiple vertebral bodies, posterior elements, sacrum, and bilateral iliac bones. Conus terminates at L1. Multilevel disc height loss and dehydration. The following disc levels are specific ally discussed: T11-T12: The disc does not extend beyond the endplate margin, however there is cortical breakthrough at T12 posteriorly with extension of enhancing soft tissue into the spinal canal. There is moderate b ilateral facet joint osteoarthritis. There is moderate right and severe left neural foraminal stenosi s. There is moderate central canal stenosis. T12-L1: The disc does not extend beyond the endplate margin. There is mild facet joint osteoarthritis . There is no neural foraminal stenosis. There is no central canal stenosis. L1-L2: Mild diffuse bulge. There is mild facet joint osteoarthritis. There is mild bilateral neural f oraminal stenosis. There is no central canal stenosis. L2-L3: Moderate diffuse bulge. There is moderate facet joint osteoarthritis. There is mild bilateral neural foraminal stenosis. There is mild central canal stenosis. L3-L4: Mild diffuse bulge. There is moderate facet joint osteoarthritis. There is mild bilateral neur al foraminal stenosis. There is no central canal stenosis. L4-L5: Mild diffuse bulge, with cortical breakthrough of the inferior aspect of the posterior L4 vert ebral body extending into the central canal 5 mm. There is severe facet joint osteoarthritis. There i s moderate right and mild left neural foraminal stenosis. There is mild central canal stenosis. L5-S1: Mild bulge with a small disc rent posteriorly and a small extrusion centrally, extending 5 mm along the posterior surface of S1. There is moderate facet joint osteoarthritis. There is moderate ri ght and mild left neural foraminal stenosis. There is no central canal stenosis. IMPRESSION: 1. Enhancing marrow lesions suspicious for metastatic disease. 2. Posterior vertebral body cortical breakthrough at T12 and L4, causing moderate central canal narro wing and severe left neural foraminal narrowing at T12. 3. Multilevel degenerative disc disease. 4. Multilevel facet arthropathy. Reviewed, dictated and finalized at location K. ER IMPRESSION: 1. Enhancing marrow lesions suspicious for metastatic disease. 2. Posterior vertebral body cortical breakthrough at T12 and L4, causing modera te central canal narrowing and severe left neural foraminal narrowing at T12. 3. Multilevel degenerative disc disease. 4. Multilevel facet arthropathy.
--- NOTE | ~2022-06-20 | CT_ITS ---
EXAMINATION: CT biopsy bone superficial DATE: 06/20/2022 15:44 INDICATION: Lytic lesion of left pubic bone. TECHNIQUE: The procedure including the risks, benefits, and alternatives was discussed with the patie nt. Risks discussed included bleeding and infection. The patient verbalized understanding of the risk s and agreed to proceed. The skin overlying the left pubic bone was prepped and draped in usual ster ile fashion. Anesthetic was administered with 1% lidocaine subcutaneously. A 16 gauge outer needle was advanced under CT guidance into the mass. An 18 gauge core biopsy needle was then used to obtain 6 core biopsy specimens. The mA was adjusted according to patient size. Iterative reconstruction tech nique was employed. The dose-length product was 148.13 mGy-cm. The needle was removed and the entry s ite was cleaned and dressed. There were no immediate complications. FINDINGS: CT images demonstrate the outer needle tip adjacent to a mass of the left pubic bone. IMPRESSION: 1. CT-guided core needle biopsy of a mass of the left pubic bone. Reviewed, dictated and finalized at location E. CTOR DECISION SUPPORT
--- NOTE | ~2022-06-20 | MR_ITS ---
MRI of the thoracic spine Clinical History: Lower lumbar analysis, metastatic disease Technique: Axial T2-weighted and gradient images, and sagittal T1-weighted, T2-weighted, and STIR marcel ges were acquired. Following intravenous administration of 13 cc MultiHance gadolinium, T1-weighted f at-sat imaging was performed in the axial and sagittal planes. Findings: There are multiple T1 hypointense, STIR hyperintense metastatic lesions scattered throughou t the thoracic spine. There is extensive involvement of the T1, T2, T5, T10, T11, and T12 vertebral b odies, with additional smaller scattered lesions present as well. There is pathologic compression def ormity of the T11 and T12 vertebral bodies with significant retropulsion of the posterior portions of these vertebral bodies. Several scattered rib lesions are also present. There is epidural extension of metastatic disease into the spinal canal at the T10 and probably T11 l evels, resulting in moderate spinal cord compression in these regions (series 14 images 34-41). There is additional mild to moderate cord compression at the T12 level related to retropulsion of the vert ebral body due to pathologic fracture with questionable minimal epidural extension of disease at the ventral epidural region. No other areas of spinal canal stenosis or cord compression identified. No abnormal signal seen withi n the spinal cord itself. Impression: Extensive thoracic spine metastatic disease, as detailed above, especially involving the T10, T11, an d T12 vertebral bodies. Pathologic compression fracture of T11 and T12. Epidural extension of disease at the T10-T11 levels, resulting in moderate spinal cord compression. P lease see details above. Additional mild to moderate cord compression at T12, largely related to retropulsion of the T12 verte bral body. Possible minimal epidural extension of disease at the T12 level. Reviewed, dictated and finalized at [facility]. 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 Pathologic compression fracture of T11 and T12. Epidural extension of disease at the T10-T11 levels, resulting in moderate spin al cord compression. Please see details above. Additional mild to moderate cord compression at T12, largely related to retropu lsion of the T12 vertebral body. Possible minimal epidural extension of disease at the T12 level.
--- NOTE | 2022-06-20 09:30 | ECG_ITS ---
Measurements Intervals [place] Rate: 135 P: 69 NC: 140 QRS: 15 QRSD: 83 T: 84 QT: 284 QTc: 426 Interpretive Statements SINUS TACHYCARDIA WITH OCCASIONAL SUPRAVENTRICULAR PREMATURE COMPLEXES NONSPECIFIC ST & T-WAVE ABNORMALITY ABNORMAL RHYTHM ECG NO PREVIOUS ECG AVAILABLE FOR COMPARISON Electronically Signed On 06-20-2022 15:27:42 CHARGING MANIPULATOR by Chaz Orellana M.D.
[2022-06-20] MEDS: ONDANSETRON INJ 4 MG/2 ML VIAL IV PUSH (09:51)
[2022-06-20] MEDS: SODIUM CHLORIDE 0.9% IV 1,000 ML 999 ML IV CONT ×2 (09:53→11:19)
[2022-06-20 10:04] LABS: Basophils Percent Auto 0.3 % (0.2-1.2); Eosinophils Percent Auto 0.1 % (0-4.4); Hematocrit 35.6 % (42.0-52.0); Hemoglobin 10.5 g/dL (14.0-18.0); Immature Granulocyte Absolute 0.13 K/mm3 (0.00-0.031); Lymphocytes Absolute Auto 1.12 K/mm3 (0.9-3.2); Lymphocytes Percent Auto 8.2 % (18.3-44.2); Mean Corpuscular HGB Conc 29.5 g/dl (32-36); Mean Corpuscular Hemoglobin 22.4 pg (26-34); Mean Corpuscular Volume 76.1 fl (80-100); Mean Platelet Volume 8.5 fl (7.4-10.4); Monocytes Absolute Auto 1.4 K/mm3 (0.1-0.6); Monocytes Percent Auto 10.5 % (2.6-8.5); Neutrophils Absolute Auto 10.9 K/mm3 (1.3-6.7); Neutrophils Percent Auto 79.9 % (45.5-73.1); Platelet Count Result 788 k/mm3 (150-375); Red Blood Count 4.68 M/mm3 (4.6-6.20); Red Cell Distribution Width 17.7 % (11.5-14.5); White Blood Count 13.7 K/mm3 (4.5-10.0)
--- NOTE | 2022-06-20 10:09 | ED.GENADULT ---
HPI - General Adult General Chief complaint: Weakness <ALEXANDRA Victor Last Filed: 06/20/22 20:04> Stated complaint: back and abd pain/ diff with legs <ALEXANDRA Victor Last Filed: 06/20/22 20:04> Time Seen by Provider: 06/20/22 09:25 <ALEXANDRA Victor Last Filed: 06/20/22 20:04> Source: patient, family and old records reviewed <ALEXANDRA Victor Last Filed: 06/20/22 20:04> Mode of arrival: ambulatory <ALEXANDRA Victor Last Filed: 06/20/22 20:04> Limitations: no limitations <ALEXANDRA Victor Last Filed: 06/20/22 20:04> History of Present Illness HPI narrative: Patient is a 67-year-old male who presents to the ED with report of weakness. Per patient's records, patient has been dealing with ongoing left-sided low back pain and was found to have widespread lytic lesions. He is currently undergoing work-up under Dr. Godinez for possible TB osteomyelitis. Per records, the case has been very complicated and multiple specialists have been consulted, including [facility]. Today, patient was scheduled to undergo a bone marrow biopsy through the outpatient imaging center. He has been increasingly weak and was hardly able to get on and off the stretcher at his appointment. He states his legs were very weak and would not perform the way he wanted to. He also complained of severe pain in his low back and lower abdomen prior to the procedure being performed, unable to lay flat. HR noted to be elevated. He was then referred here for further evaluation. Patient states pain is improved currently. He has had ongoing issues with low back pain and is prescribed tramadol for this, but states the pain he experienced today was different. Patient also reports having decreased appetite/p.o. intake, nausea, intermittent shortness of breath, and constipation for the last 7 days. He denies fever, cough, chest pain, urinary symptoms. <ALEXANDRA Victor Last Filed: 06/20/22 20:04> Related Data Home medications: Home Medications Medication Instructions Recorded Confirmed megestrol 400 mg/10 mL (40 mg/mL) 10 mg PO DAILY 06/20/22 06/20/22 oral suspension tramadol 50 mg tablet 50 mg PO Q6H 06/20/22 06/20/22 <ALEXANDRA Victor Last Filed: 06/20/22 20:04> Allergies/adverse reactions: Allergies Allergy/AdvReac Type Severity Reaction Status Date / Time latex Allergy Mild Skin Verified 06/20/22 13:40 Reaction <ALEXANDRA Victor Last Filed: 06/20/22 20:04> Review of Systems Review of Systems: CONSTITUTIONAL: Reports generalized weakness. Denies fever, chills, or sweats. CARDIOVASCULAR: Denies chest pain, palpitations, or edema. RESPIRATORY: See HPI. GASTROINTESTINAL: See HPI. GENITOURINARY: Denies dysuria or hematuria. SKIN: Denies rash or itching. MUSCULOSKELETAL: See HPI. NEUROLOGIC: See HPI. <Michelle Curry PA-C - Last Filed: 06/20/22 20:04> All systems reviewed & are unremarkable except as noted in HPI and below <Michelle Curry PA-C - Last Filed: 06/20/22 20:04> [facility] Past Medical History Medical History: Medical History Calculus of ureter Enlarged prostate without lower urinary tract symptoms (luts) History of kidney stones Hypertension, essential Impaired glucose tolerance Metabolic syndrome Overweight (BMI 25.0-29.9) Pure hyperglyceridemia Sciatic nerve pain Seasonal rhinitis Unspecified hearing loss <ALEXANDRA Victor Last Filed: 06/20/22 20:04> Surgical History Surgical History: Surgical History History of bone marrow biopsy History of circumcision History of wisdom tooth extraction <ALEXANDRA Victor Last Filed: 06/20/22 20:04> Family History Family History: Family History (Reviewed 06/23/22
[2022-06-20 10:21] LABS: Alanine Aminotransferase 34 U/L (6-50); Albumin Level 3.9 g/dL (3.5-5.1); Alkaline Phosphatase 378 U/L (38-126); Anion Gap 19 mmol/L (8-16); Aspartate Amino Transferase 45 U/L (17-59); Bilirubin,Total 1.5 mg/dL (0.2-1.3); Blood Urea Nitrogen 21 mg/dL (9-20); Calcium 10.2 mg/dL (8.4-10.2); Carbon Dioxide 19 mmol/L (22-30); Chloride 93 mmol/L (98-107); Estimated CRCL calculation 68 ml/min; Estimated Glomerular Filt Rate > 60; Glucose 169 mg/dL (65-110); Potassium 4.3 mmol/L (3.4-5.0); Sodium 131 mmol/L (137-145)
[2022-06-20 10:37] LABS: Anisocytosis 1+ (NORMAL); Platelet Estimate Increased (Adequate); Schistocytes None Seen (NORMAL)
[2022-06-20 11:01] LABS: INR 1.8; Lactic Acid Reflex 2.5 mmol/L (0.7-2.0); Lipase 61 U/L (23-300); Prothrombin Time 19.9 Seconds (11.1-14.7)
[2022-06-20 11:02] LABS: Partial Thromboplastin Time 43.1 SECONDS (22.3-36.8)
[2022-06-20 11:13] LABS: Troponin I < 0.012 ng/mL (0.000-0.034)
[2022-06-20 11:25] LABS: Influenza A QL RT-PCR Negative (Negative); Influenza B QL RT-PCR Negative (Negative); SARS-CoV-2 RNA PCR Negative
[2022-06-20 11:26] LABS: Appearance Urine Clear (Clear); Bilirubin Urine 3+ (Negative); Blood Urine 1+ (Negative); Color Urine Yellow (Yellow); Glucose Urine UA Negative (Negative); Ketones Urine 3+ mg/dL (Negative); Leukocyte Esterase Ur Negative LEU/UL (Negative); Nitrate Urine Negative (Negative); Protein Urine 1+ mg/dL (Negative); Specific Grav Ur 1.025 (1.001-1.035); pH Urine 5.5 (5.0-9.0)
[2022-06-20 11:33] LABS: Mucus Urine Rare /lpf; WBC Urine 0-3 /hpf
[2022-06-20] MEDS: HYDROmorphone HCL INJ (*CRX) 1 MG/ML SYR IV PUSH (11:33)
[2022-06-20 11:37] LABS: Add Urine Microscopic? YES
[2022-06-20 13:48] LABS: Reflex Lactic Acid Yes or No Add Lactic
--- NOTE | 2022-06-20 14:18 | PM.IMHP ---
H&P: HPI History of Present Illness Date/Time: 06/20/22 14:18 Chief Complaint: Weakness Narrative: This is a 67-year-old male patient who came in with reports of weakness. The patient has been having left-sided lower back pain and was found to have wide spread lytic lesion. The patient was supposed to have a bone marrow aspiration today but could not tolerated. The patient has been seeing Dr. Godinez for these lytic lesions. Patient may possibly have TB osteomyelitis but is not currently under any treatment. The patient has been seen many consulted physicians. The patient takes tramadol at home. However his pain is different today. Has decreased appetite and poor oral intake some nausea and intermittent shortness of breath. He has been constipated for last 7 days. The patient was sedated and was able to have a CT-guided core needle biopsy of a mass of the left pelvic bone. His chest x-ray was shown his multiple pulmonary nodules no acute cardiopulmonary abnormality. Chest abdomen pelvis CTA was read as the followingNo pulmonary embolus or acute cardiopulmonary abnormality identified. 2. No acute visceral findings of the abdomen or pelvis. 3. Interval worsening of widespread metastatic disease as evidenced by new and worsening metastases involving the axial and appendicular skeleton, worsening pathologic fractures, and multiple new pulmonary nodules. Oncology has been consulted His last PET scan was on 05/01/2022 read as a following . There is prominent FDG avid mixed lytic and blastic bone lesions which could represent multiple myeloma or metastatic disease. 2. Somewhat less intense moderate FDG uptake associated with a 17 x 11 mm right adrenal nodule also suspicious for metastatic disease. 2. No other lesions identified suspicious for primary malignancy. Correlate with results from the planned bone biopsy. Initially was thought that this may be mycobacteria and Infectious Disease pharmacist has been notified. I explained him that the patient was having a biopsy today and that will wait for further results of any cultures to determine if the patient needs antibiotics. However it is highly suspicious for metastatic disease. The patient was given normal saline, Zofran and Dilaudid, and Versed in the emergency room. The patient is being admitted to observation status on the date of service of 06/20/2022 Review of Systems Review of Systems: See HPI All systems reviewed & are unremarkable except as noted in HPI and below Constitutional: Constitutional: Reports as per HPI and Reports no additional constitutional complaints Eyes: Eyes: Reports as per HPI and Reports no additional eye complaints ENT: Reports system reviewed and no additional complaints, except as documented and Reports Normal hearing present Cardiovascular: Cardiovascular: Reports no additional cardiovascular complaints Respiratory: Respiratory: Reports no additional respiratory complaints and Reports no additional respiratory complaints Gastrointestinal: Gastrointestinal: Reports as per HPI and Reports no additional gastrointestinal complaints Musculoskeletal: Musculoskeletal: Reports no additional musculoskeletal complaints Integumentary/Breasts: Skin/Breast: Reports system reviewed and no additional complaints, except as docu and Reports as per HPI Neurologic: Reports system reviewed and no additional complaints, except as documented, Reports as per HPI and Reports Normal hearing present Psychiatric: Psychiatric: Reports no additional psychiatric complaints and Reports as per HPI Endocrine: Endocrine: Reports no additional endocrine complaints Hematologic/Lymphatic: Hematologic/Lymphatic: Reports no additional hematologic/lymphatic complaints Allergic/Immunologic: Allergic/Immunologic: Reports no additional allergic/immunologic complaints [facility] Past Medical History Medical History (Updated 06/20/22 @ 21:35 by Ana Vela NP) Calculus of ureter Enlarged prost
[2022-06-20 14:21] LABS: Lactic Acid 1.7 mmol/L (0.7-2.0)
[2022-06-20] MEDS: MIDAZOLAM HCL (*CRX) 2 MG/2 ML VIAL 1 MG IV PUSH (15:02)
--- NOTE | 2022-06-20 16:02 | ADMGEN ---
This patient, Justin Null, was admitted to [facility] Surg Room 321-01 at 1600. Patient/family oriented to hospital policies and general routines including ID bracelet, bed and alarms, visiting hours, pain management, procedures, bathroom and other care routines, personal items, smoking policy, room service/diet, and visiting hours. Information on how to activate the Rapid Response Team has been discussed. Patient/Family are encouraged to report perceived risks to care and to ask questions if they do not understand what they are told or what they should do.
--- NOTE | 2022-06-20 18:18 | PDONCCN ---
[facility] - Date of Consult Date/Time: 06/20/22 18:18 Requesting Physician: Adria Cueto MD Primary Care Provider: Chaz Haines MD - Consult Narrative Reason for consult: Lytic bone lesions Narrative: Justin Null is a 67 year old male with history of lytic bone lesion status post left sacral ala biopsy in April of 2022. Patient had normal PSA and serum protein electrophoresis showed M spike of 0.7 grams/deciliter. PET scan done previously showed 11 x 17 mm right adrenal nodule suspicious for metastatic disease. 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 He was diagnosed with presumed pots disease. He came into the ER with generalized weakness unable to walk with poor appetite and continuous weight loss. He was having some left-sided low back pain. Patient was scheduled to have bone marrow and bone biopsy today. CT chest abdomen and pelvis showed no PE but worsening of widespread metastatic disease and new worsening metastasis involving axial and appendicular skeleton with worsening pathological fractures and multiple new pulmonary nodules. The largest was 9 mm in the right upper lobe. Patient had low left pubic lytic lesion biopsy performed today. Review of Systems - Review of Systems All systems reviewed & are unremarkable except as noted in HPI and [facility] Medical History: Medical History (Last Reviewed 06/20/22 @ 14:18 by Ana Vela NP) Calculus of ureter Enlarged prostate without lower urinary tract symptoms (luts) Hypertension, essential Impaired glucose tolerance Metabolic syndrome Overweight (BMI 25.0-29.9) Pure hyperglyceridemia Sciatic nerve pain Seasonal rhinitis Unspecified hearing loss Surgical History: Surgical History (Last Reviewed 06/20/22 @ 14:18 by Ana Vela NP) History of circumcision History of wisdom tooth extraction Family History: Family History (Last Reviewed 06/20/22 @ 14:18 by Ana Vela NP) Sibling Family history of malignant neoplasm of bone Father , at 78 due to ruptured esophagus No problems noted. Mother , at 94 due to leukemia Leukemia - Social History Social History: Social History (Last Updated 06/20/22 @ 14:23 by Ana Vela NP) Gender Identity: Gender identity (if verbalized by the patient): Male Alcohol Use: Alcohol intake: current Drinks per week: 0 Alcohol use details: MAY HAVE A DRINK A COUPLE TIMES A YEAR. Substance Use: Substance use: never Substance use type: does not use Others: Spiritual care concerns: No Living Arrangements: Living arrangements: with family Oppucation/Education: Occupation/Education: occupation Smoking Status: Smoking status: Never smoker Social Determinants of Health: Has the Lack of Transportation Kept You From Medical Appointments or From Getting Medications?: No Within the Past 12 Months, Were You Worried Whether Your Food Would Run Out Before You Got Money to Buy More?: Never True What is Your Housing Situation Today?: I Have Housing Are You Worried That in the Next 2 Months, You May Not Have Your Own Housing to Live In?: No Do You Have Trouble Paying Your Heating Or Electricity Bill?: No Do You Have Trouble Paying For Medicines?: No Are You Currently Unemployed and Looking for Work?: No Highest Level of Education Completed: High School Diploma/GED Do You Have Trouble With Childcare or the Care of a Family Member?: No Exam - Vital Signs Vital Signs - 24 hr 06/20/22 09:25 06/20/22 09:47 06/20/22 09:24 Temperature 36.5 C Pulse Rate 135 H 130 H Respiratory Rate 19 17 Blood Pressure 138/98 H Pulse Oximetry 100 Oxygen Delivery Room Air 06/20/22 09:28 06/20/22 09:29 06/20/22 09:30 Temperature Pulse Rate 133 H 137 H 141 H Respiratory Rate 18 15 19 Blood Pressure 138/98 H 133/90 Pulse Oximetry Oxygen
[2022-06-20] MEDS: traMADol HCL (*CRX) 50 MG TABLET PO ×2 (18:57→22:26)
[2022-06-21] VITALS (9 sets, daily range): BP systolic 118–152; BP diastolic 70–82; PULSE 64–120; RESP 17–18; TEMP 36.2–36.8; O2SAT 99–100
[2022-06-21] MEDS: traMADol HCL (*CRX) 50 MG TABLET PO ×4 (03:32→22:13)
[2022-06-21 08:07] LABS: Basophils Percent Auto 0.3 % (0.2-1.2); Eosinophils Percent Auto 0.2 % (0-4.4); Hematocrit 30.4 % (42.0-52.0); Hemoglobin 8.8 g/dL (14.0-18.0); Immature Granulocyte Absolute 0.12 K/mm3 (0.00-0.031); Lymphocytes Absolute Auto 0.91 K/mm3 (0.9-3.2); Lymphocytes Percent Auto 7.9 % (18.3-44.2); Mean Corpuscular HGB Conc 28.9 g/dl (32-36); Mean Corpuscular Hemoglobin 21.5 pg (26-34); Mean Corpuscular Volume 74.3 fl (80-100); Mean Platelet Volume 8.3 fl (7.4-10.4); Monocytes Absolute Auto 1.4 K/mm3 (0.1-0.6); Monocytes Percent Auto 11.8 % (2.6-8.5); Neutrophils Absolute Auto 9.1 K/mm3 (1.3-6.7); Neutrophils Percent Auto 78.8 % (45.5-73.1); Platelet Count Result 633 k/mm3 (150-375); Red Blood Count 4.09 M/mm3 (4.6-6.20); Red Cell Distribution Width 17.4 % (11.5-14.5); White Blood Count 11.6 K/mm3 (4.5-10.0)
[2022-06-21 08:10] LABS: Glucose Point of Care 119 mg/dl (65-105)
[2022-06-21] MEDS: lisinopriL 5 MG TABLET PO (08:12)
[2022-06-21] MEDS: MEGESTROL ACETATE (*CHEMO) ORAL SUSP 40 MG/ML SYR 400 MG PO (08:12)
[2022-06-21 08:13] LABS: Alanine Aminotransferase 26 U/L (6-50); Albumin Level 3.4 g/dL (3.5-5.1); Alkaline Phosphatase 280 U/L (38-126); Anion Gap 9 mmol/L (8-16); Aspartate Amino Transferase 43 U/L (17-59); Blood Urea Nitrogen 15 mg/dL (9-20); Calcium 9.4 mg/dL (8.4-10.2); Carbon Dioxide 26 mmol/L (22-30); Chloride 96 mmol/L (98-107); Estimated CRCL calculation 97 ml/min; Estimated Glomerular Filt Rate > 60; Glucose 116 mg/dL (65-110); Lactate Dehydrogenase 276 U/L (120-246); Magnesium 2.1 mg/dL (1.6-2.3); Potassium 4.3 mmol/L (3.4-5.0); Sodium 131 mmol/L (137-145)
[2022-06-21 08:55] LABS: Hemoglobin A1C 5.8 % (<5.7)
[2022-06-21 09:02] LABS: Platelet Clumps Present; Platelet Estimate Increased (Adequate); Schistocytes None Seen (NORMAL)
[2022-06-21 12:33] LABS: Glucose Point of Care 114 mg/dl (65-105)
--- NOTE | 2022-06-21 14:02 | PM.IMPN ---
Progress Note: A&P Assessment and Plan (1) Bone lesion: Code(s): M89.9 - Disorder of bone, unspecified Status: Acute Assessment and Plan: When looking back on patient's medical records I was able to find that he reported unintentional weight loss in December of 2021. Patient underwent CT abdomen and pelvis on 04/04/22 due to unintentional weight loss, fatigue and back pain. Patient was then prescribed prednisone. This is when osteolytic lesions of the axial skeleton were discovered. A chest CT on 04/15/22 discovered a right adrenal nodule consistent with metastasis. PET scan showed possible multiple myeloma, a right adrenal nodule suspicious for metastatic disease. CT guided bone biopsy positive for acid fast bacilli although patients Quantiferon gold test is negative. 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 Differential: infection vs. neoplasm. Patient presented to the ED on 06/20/2022 with chief complaint of weakness. Patient found to have pulmonary nodules on CT scan. While in the ED patient CT-guided core needle biopsy of a mass of the left pelvic bone. Patient scheduled to have bone marrow aspiration and biopsy on Thursday. Patient stated that he was comfortable at this time. Patient then mention to me that he is unable to move his legs. Patient stated that this happened on 06/20/2022. Patient stated about a week prior he is that the bottoms of his feet cell to Spongy . Within this past week his legs had gotten progressively worse and now he is unable to feel or move his legs. patient stated that back in the fall he had 0 difficulty walking and did not have any back pain. Since then patient's back pain has gotten progressively worse and has been more difficult to walk and stay standing although his legs did function up until about a week ago. Patient's reflexes are present. Patient stated that on Thursday he had a straight catheterization that was painful and when he had it again today he could not feel it. It appears that patient is experiencing ascending paralysis. This was discussed with Dr. Godinez and he is concerned for metastasis pressing on spinal cord. Neurology consulted. Bone marrow aspiration and biopsy planned. Patient also has multiple pulmonary nodules. The patient is on Megace for the weight loss. MRI ordered for paralysis of legs: results revealed enhancing marrow lesions suspicious for metastatic disease, posterior vertebral body cortical breakthrough at T12 and L4 causing moderate central canal narrowing and severe left neural foraminal narrowing at T12, DDD, multilevel facet arthropathy Neurology consulted. Neuro surgery consulted Patient may possibly be transferred to facility with infectious disease specialist. (2) Hypertension, essential: Code(s): I10 - Essential (primary) hypertension Status: Acute Assessment and Plan: continue with lisinopril monitor BMP daily. (3) Generalized weakness: Code(s): R53.1 - Weakness Status: Acute Assessment and Plan: The patient has pain and has difficulty moving. (4) Pulmonary nodules: Code(s): R91.8 - Other nonspecific abnormal finding of lung field Status: Acute Assessment and Plan: See above. (5) Impaired glucose tolerance: Code(s): R73.02 - Impaired glucose tolerance (oral) Status: Acute Assessment and Plan: Accu-Chek AC and HS with sliding scale insulin and hypoglycemic protocol and check A1c. Time Spent With Patient Time with patient: Greater than 35 minutes Subjective Date/time seen: 06/21/22 14:02 Interval history: Patient is sitting in bed resting when I enter the room. Patient stated that he had come into the ER due to progressive weakness and back pain. While in the ED patient CT-guided core needle biopsy of a mass of the left pelvic bone. Patient scheduled to have bone marrow aspiration and biopsy on Thursday. Patient state
--- NOTE | 2022-06-21 14:13 | WPDNEURCNPN ---
Assessment and Plan Assessment and plan (1) Bone lesion: Code(s): M89.9 - Disorder of bone, unspecified Status: Acute (2) Paraplegia, unspecified: Code(s): G82.20 - Paraplegia, unspecified Status: Acute Plan Paresis with history of underlying malignancy and tuberculosis and also with involvement of the spinal axis Consult date: 06/21/22 HPI: Justin Null is a 67 year old male admitted to the hospital through the emergency room for the complaints of weakness as per the information available from the emergency room record patient has been dealing with ongoing left-sided low back pain when he was found to have widespread lytic lesion he is undergoing workup for Dr. Ciera Jones for the possible TB osteomyelitis patient has been evaluated by multiple specialist including the [facility] on the day of admission he was scheduled to undergo a bone marrow biopsy [facility] for complaints of increasing weakness and complained of severe pain in his lower back and abdomen prior to the procedure being performed he was unable to lay flat was noted to be tachycardic though by the time he was on the floor he was somewhat better received tramadol for the pain. He has been taking only tramadol 50 mg Q 6 hours p.r.n. in addition to megestrol 10 mg daily. He does have ongoing history of hypertension, enlarged prostate and low back pain, is never smoker currently alcohol intake a examination documented him to have decreased strength in the lower extremities with vital signs stable except blood pressure 172/90 is being worked up for the possible TB osteomyelitis his routine lab studies was blood sugar of 169 alkaline phosphatase 378 lactic acid 2.5 abnormal UA and negative for influenza AB and cooperated x-ray of the chest and CT of the chest abdomen and pelvic area documented worsening of the widespread metastatic disease involving the axial and appendicular skeleton worsening pathological fracture and new pulmonary nodules EKG normal with no atrial fibrillation. Since admission CBC with very mild leukocytosis hemoglobin 8.8 platelet count 633. 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 and has been noted to have multiple fractures his routine lab is sodium 131 calcium 10.2 normal hepatic enzymes except alkaline falls PMFSH Past Medical History Medical History (Updated 06/21/22 @ 14:28 by Mariano Mccray MD) Calculus of ureter Enlarged prostate without lower urinary tract symptoms (luts) History of kidney stones Hypertension, essential Impaired glucose tolerance Metabolic syndrome Overweight (BMI 25.0-29.9) Pure hyperglyceridemia Sciatic nerve pain Seasonal rhinitis Unspecified hearing loss Surgical History Surgical History (Updated 06/20/22 @ 21:26 by Ana Vela NP) History of bone marrow biopsy History of circumcision History of wisdom tooth extraction Family History Family History Sibling Family history of malignant neoplasm of bone Father , at 78 due to ruptured esophagus No problems noted. Mother , at 94 due to leukemia Leukemia Social History Social History (Updated 06/20/22 @ 21:28 by Ana Vela NP) Social History: He lives with . They have no children. 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 He is retired from [employer]. code status : full code Smoking status: Never smoker Alcohol intake: current Drinks per week: 0 Alcohol use details: MAY HAVE A DRINK A COUPLE TIMES A YEAR. Substance use: never Substance use type:
[2022-06-21] MEDS: ENOXAPARIN 40 MG/0.4 ML SYRINGE SUB-Q (17:53)
[2022-06-21 18:04] LABS: Glucose Point of Care 121 mg/dl (65-105)
--- NOTE | 2022-06-21 18:13 | WPDNEUROSGPN ---
Subjective Date/time seen: 06/21/22 18:13 Interval history: Asked to review imaging on patient Justin Null by Hospitalist team Patient with known metastatic disease with clinical and radiographic progression over past two months Patient presented to ED with neurological symptoms including sensory change and weakness over past week CT CAP in ED shows progressive metastatic involvement of the visceral organs as well as axial and extra-axial skeleton including pathologic fractures in the thoracic region PAtient, per hospitalist provider, with absent motor function in lower extremities, absent sensation, and urinary retention MRI lumbar spine shows widespread involvement of the lumbar spine with nearly every vertebral body with presumed tumor involvement. There is extension into the spinal canal at T12 but stenosis at this level is moderate, with CSF visible on T2 sequences and without hui spinal cord compression. I suspect that the explanation for the patient's progressive neurological symptoms is progressive metastatic disease but likely within the thoracic region I recommend imaging of the cervical and thoracic spine to more fully evaluate the extent of disease and to attempt to determine a source for the patient's weakness. However, in the setting of widespread metastatic disease with multifocal spinal involvement and > 24 hours of motor deficit, there is not likely to be a role for surgical intervention. I will review thoracic MRI when complete and will discuss needs for formal consultation versus transition to palliative care with team once these studies are complete Objective Data Vital Signs Vital Signs: Vital Signs - 24 hr 06/20/22 22:00 06/21/22 00:00 06/21/22 04:00 Temperature 97.7 F Pulse Rate 96 64 94 Respiratory Rate 18 Blood Pressure 150/86 H Pulse Oximetry 100 Oxygen Delivery 06/21/22 06:00 06/21/22 08:05 06/21/22 08:00 Temperature 97.2 F L Pulse Rate 103 H 98 Respiratory Rate 18 Blood Pressure 152/82 H Pulse Oximetry 100 Oxygen Delivery Room Air 06/21/22 12:00 06/21/22 16:00 06/21/22 14:00 Temperature 98.1 F Pulse Rate 120 H 103 H 118 H Respiratory Rate 17 Blood Pressure 150/80 H Pulse Oximetry 99 Oxygen Delivery Intake/Output Intake/Output: Intake & Output 06/18/22 06/19/22 06/20/22 06/21/22 23:59 23:59 23:59 23:59 Intake Total 2600 Output Total 650 Balance 2600 -650 Meds/Results Medications: Active Medications Generic Name Dose Route Start Last Admin Trade Name Freq PRN Reason Stop Dose Admin Dextrose 12.5 gm 06/20/22 21:34 Dextrose 50% 25 Gm/50 Ml Syringe IV PUSH PRN PRN Hypoglycemia Protocol Enoxaparin Sodium 40 mg 06/21/22 18:00 06/21/22 17:53 Enoxaparin 40 Mg/0.4 Ml Syringe SUB-Q 40 mg DAILY@1800 ALEX Administration Glucagon 1 mg 06/20/22 21:34 Glucagon For Inj 1 Mg Vial IM PRN PRN Hypoglycemia Protocol Glucose 15 gm 06/20/22 21:34 Glucose Oral Gel 15 Gm Of Glucse In 37.5 Gm Tube PO PRN PRN Hypoglycemia Protocol Dextrose 1,000 mls @ 100 mls/hr 06/20/22 21:34 Dextrose 5% 1,000 Ml IVPB PRN PRN Hypoglycemia Protocol Insulin Aspart 2 - 5 units 06/21/22 08:00 06/21/22 18:02 Insulin Aspart (*Bkc) 100 Units/Ml SUB-Q Not Given TIDWM ALEX Protocol Lisinopril 5 mg 06/21/22 09:00 06/21/22 08:12 Lisinopril 5 Mg Tablet PO 5 mg DAILY ALEX Administration Lorazepam 1 mg 06/20/22 14:16 Lorazepam Inj (*Crx) 2 Mg/Ml Vial IV PUSH Q6H PRN Anxiety Megestrol Acetate 400 mg 06/21/22 09:00 06/21/22 08:12 Megestrol Acetate (*Chemo) Oral Susp 40 Mg/Ml Syr PO 07/21/22 08:59 400 mg DAILY ALEX Administration Ondansetron HCl 4 mg 06/20/22 13:52 Ondansetron Inj 4 Mg/2 Ml Vial IV PUSH Q4H PRN Nausea Tramadol HCl 50 mg 06/20/22 18:40 06/20/22 18:57 Tramadol Hcl (*Crx) 50 Mg Tablet PO 50 m
[2022-06-21 23:06] LABS: Glucose Point of Care 103 mg/dl (65-105)
[2022-06-22] VITALS (8 sets, daily range): BP systolic 104–117; BP diastolic 61–66; PULSE 97–122; RESP 16–18; TEMP 36.6–37.1; O2SAT 99–100
[2022-06-22] MEDS: traMADol HCL (*CRX) 50 MG TABLET PO ×4 (03:31→20:43)
[2022-06-22 06:14] LABS: Basophils Percent Auto 0.1 % (0.2-1.2); Eosinophils Percent Auto 0.4 % (0-4.4); Hematocrit 28.2 % (42.0-52.0); Hemoglobin 8.4 g/dL (14.0-18.0); Immature Granulocyte Absolute 0.06 K/mm3 (0.00-0.031); Immature Granulocyte Percent A 0.6 % (0-0.5); Lymphocytes Absolute Auto 1.01 K/mm3 (0.9-3.2); Lymphocytes Percent Auto 10.7 % (18.3-44.2); Mean Corpuscular HGB Conc 29.8 g/dl (32-36); Mean Corpuscular Hemoglobin 22.4 pg (26-34); Mean Corpuscular Volume 75.2 fl (80-100); Mean Platelet Volume 7.9 fl (7.4-10.4); Monocytes Absolute Auto 1.3 K/mm3 (0.1-0.6); Monocytes Percent Auto 13.8 % (2.6-8.5); Neutrophils Percent Auto 74.4 % (45.5-73.1); Platelet Count Result 519 k/mm3 (150-375); Red Blood Count 3.75 M/mm3 (4.6-6.20); Red Cell Distribution Width 17.6 % (11.5-14.5); White Blood Count 9.4 K/mm3 (4.5-10.0)
[2022-06-22 06:33] LABS: Alanine Aminotransferase 24 U/L (6-50); Albumin Level 3.2 g/dL (3.5-5.1); Alkaline Phosphatase 246 U/L (38-126); Anion Gap 8 mmol/L (8-16); Aspartate Amino Transferase 34 U/L (17-59); Bilirubin,Total 0.9 mg/dL (0.2-1.3); Blood Urea Nitrogen 17 mg/dL (9-20); Calcium 8.8 mg/dL (8.4-10.2); Carbon Dioxide 23 mmol/L (22-30); Chloride 98 mmol/L (98-107); Estimated CRCL calculation 97 ml/min; Estimated Glomerular Filt Rate > 60; Glucose 93 mg/dL (65-110); Phosphorus 3.3 mg/dL (2.5-4.5); Sodium 129 mmol/L (137-145)
[2022-06-22 06:56] LABS: Anisocytosis 1+ (NORMAL); Hypochromasia 1+ (NORMAL); Platelet Clumps Present; Platelet Estimate Increased (Adequate)
[2022-06-22 06:57] LABS: Schistocytes None Seen (NORMAL)
[2022-06-22 07:11] LABS: HIV 1/2 Ab P24 Ag Result Negative (Negative)
[2022-06-22 08:07] LABS: Glucose Point of Care 95 mg/dl (65-105)
[2022-06-22] MEDS: lisinopriL 5 MG TABLET PO (08:25)
[2022-06-22] MEDS: MEGESTROL ACETATE (*CHEMO) ORAL SUSP 40 MG/ML SYR 400 MG PO (08:25)
[2022-06-22 11:31] LABS: Glucose Point of Care 148 mg/dl (65-105)
[2022-06-22] MEDS: ACETAMINOPHEN 325 MG TABLET 650 MG PO (13:20)
--- NOTE | 2022-06-22 17:03 | PM.IMPN ---
Progress Note: A&P Assessment and Plan (1) Bone lesion: Code(s): M89.9 - Disorder of bone, unspecified Status: Acute Assessment and Plan: Patient reported unintentional weight loss in December of [address] abdomen and pelvis on 04/04/22 showing osteolytic lesions of the axial skeleton. Chest CT 04/15 showed right adrenal nodule consistent with metastasis. PET scan 05/01 showed mixed lytic and blastic bone lesions possible multiple myeloma, a right adrenal nodule suspicious for metastatic disease. CT guided bone biopsy positive for acid fast bacilli although patients Quantiferon gold test is negative. Differential: infection vs. neoplasm. On presentation, CT Ch/A/P showing interval worsening metastases involving the axial and appendicular skeleton, worsening pathologic fractures and multiple new pulmonary nodules. Patients weakness has progressed to complete LE paralysis. Most likely related to compression but consider paraneoplastic condition. MRI Lumbar showing enhancing marrow lesions suspicious for metastatic disease and moderate central canal stenosis at T11-12. Cervical and Thoracic MRI pending. Neurosurgery and Oncology consulted. Patient scheduled to have bone marrow aspiration and biopsy on Thursday. The patient is on Megace for the weight loss. Patient may possibly be transferred to facility with infectious disease specialist. (2) Paraplegia, unspecified: Code(s): G82.20 - Paraplegia, unspecified Status: Acute Assessment and Plan: As above. (3) Hypertension, essential: Code(s): I10 - Essential (primary) hypertension Status: Acute Assessment and Plan: Patient's blood pressure was reviewed on 06/22 Blood pressure remains well controlled. Will continue current medications. (4) Pulmonary nodules: Code(s): R91.8 - Other nonspecific abnormal finding of lung field Status: Acute Assessment and Plan: See above. (5) Impaired glucose tolerance: Code(s): R73.02 - Impaired glucose tolerance (oral) Status: Acute Assessment and Plan: A1c 5.8. Accu-Chek AC and HS with sliding scale insulin and hypoglycemic protocol (6) Anemia: Code(s): D64.9 - Anemia, unspecified Status: Acute Assessment and Plan: Microcytic anemia noted. Suspect related to the severity of the bony lesions. Check iron studies. Subjective Date/time seen: 06/22/22 17:03 Interval history: 67yo male with HTN and known bony lesions here for progressive lower extremity weakness and back pain. No changes in his lower extremity weakness. He is 10 available to move his legs at all. He has just come back from his MRI which he tolerated well. They did have to sit him up slightly which did cause hip pain. He says he has normal sensation to his hips but is numb below this area. Patient did eat better today. Patient scheduled to have bone marrow aspiration and biopsy on Thursday. Patient stated that he was comfortable with proceeding with this test but requests sedation. Exam Narrative: AF 115/66 110 18 99% ra Gen - NARD lying semi-recumbent in bed Chest - CTA bilaterally, nml RR CV - tachycardic, regular Abd - Soft, NT/ND, Positive BS Ext - No pedal edema Neuro - Alert and oriented. Bilateral LE strength 0/5. Normal sensation to light touch to the hips Psych - Nml mood and affect Skin - Warm and dry Objective Data Vital Signs Vital Signs: Vital Signs - 24 hr 06/21/22 22:00 06/21/22 20:00 06/22/22 00:00 Temperature 98.2 F Pulse Rate 103 H 102 H 101 H Respiratory Rate 18 Blood Pressure 118/70 Pulse Oximetry 100 Oxygen Delivery 06/22/22 04:00 06/22/22 06:00 06/22/22 08:30 Temperature 98 F Pulse Rate 101 H 100 Respiratory Rate 18 Blood Pressure 115/66 Pulse Oximetry 99 Oxygen Delivery Room Air 06/22/22 08:00 06/22/22 16:00 Temperature Pulse Rate 122
[2022-06-22] MEDS: ENOXAPARIN 40 MG/0.4 ML SYRINGE SUB-Q (17:04)
[2022-06-22 17:30] LABS: Glucose Point of Care 130 mg/dl (65-105)
--- NOTE | 2022-06-22 18:36 | PC.NURSE ---
This nurse called per nurse communication order. Dr. Godinez stated that the patient should be on the list for thursday, but that he is not there and unable to look at the list for procedures of bone marrow biopsy tomorrow and suggested to call radiology to see if they have a list. Radiology was then called, and they stated they do not have any list and that no other departments are here at the moment to check. charge nurse made aware. List should be made available thursday.
[2022-06-22 20:43] LABS: Glucose Point of Care 191 mg/dl (65-105)
[2022-06-23] VITALS (9 sets, daily range): BP systolic 102–111; BP diastolic 60–69; PULSE 86–130; RESP 16–18; TEMP 36.4–36.9; O2SAT 98–100; BMI 20.7
[2022-06-23] MEDS: traMADol HCL (*CRX) 50 MG TABLET PO ×4 (03:35→20:39)
[2022-06-23 06:37] LABS: Basophils Percent Auto 0.2 % (0.2-1.2); Eosinophils Absolute Auto 0.1 K/mm3 (0-0.3); Eosinophils Percent Auto 0.9 % (0-4.4); Hematocrit 28.9 % (42.0-52.0); Hemoglobin 8.4 g/dL (14.0-18.0); Immature Granulocyte Absolute 0.08 K/mm3 (0.00-0.031); Lymphocytes Absolute Auto 1.03 K/mm3 (0.9-3.2); Lymphocytes Percent Auto 12.7 % (18.3-44.2); Mean Corpuscular HGB Conc 29.1 g/dl (32-36); Mean Corpuscular Hemoglobin 22.1 pg (26-34); Mean Corpuscular Volume 76.1 fl (80-100); Monocytes Absolute Auto 1.1 K/mm3 (0.1-0.6); Monocytes Percent Auto 13.1 % (2.6-8.5); Neutrophils Absolute Auto 5.8 K/mm3 (1.3-6.7); Neutrophils Percent Auto 72.1 % (45.5-73.1); Platelet Count Result 502 k/mm3 (150-375); Red Cell Distribution Width 17.5 % (11.5-14.5); White Blood Count 8.1 K/mm3 (4.5-10.0)
[2022-06-23 06:53] LABS: Iron 16 ug/dL (49-181)
[2022-06-23 07:05] LABS: Percent Iron Saturation 10 % (20-50)
[2022-06-23 07:13] LABS: Albumin Level 3.2 g/dL (3.5-5.1); Anion Gap 4 mmol/L (8-16); Blood Urea Nitrogen 21 mg/dL (9-20); CRP 21.3 mg/dL (<1.0); Calcium 8.7 mg/dL (8.4-10.2); Carbon Dioxide 29 mmol/L (22-30); Chloride 95 mmol/L (98-107); Creatine Kinase < 20 U/L (55-170); Estimated CRCL calculation 97 ml/min; Estimated Glomerular Filt Rate > 60; Glucose 100 mg/dL (65-110); Magnesium 2.1 mg/dL (1.6-2.3); Phosphorus 3.2 mg/dL (2.5-4.5); Potassium 3.7 mmol/L (3.4-5.0); Sodium 128 mmol/L (137-145)
[2022-06-23 08:03] LABS: Glucose Point of Care 101 mg/dl (65-105)
[2022-06-23] MEDS: MEGESTROL ACETATE (*CHEMO) ORAL SUSP 40 MG/ML SYR 400 MG PO (08:09)
[2022-06-23] MEDS: lisinopriL 5 MG TABLET PO (08:09)
[2022-06-23] MEDS: SODIUM CHLORIDE 500 MG TABLET PO ×2 (08:12→17:52)
[2022-06-23 08:27] LABS: Ferritin > 2000.00 ng/mL (11.1-264)
[2022-06-23 11:08] LABS: Creatinine Urine 121.9 mg/dL
[2022-06-23 11:11] LABS: Sodium Urine Random 91 meq/L
[2022-06-23 11:24] LABS: Glucose Point of Care 120 mg/dl (65-105)
--- NOTE | 2022-06-23 11:59 | PM.IMPN ---
Progress Note: A&P Assessment and Plan (1) Bacteremia: Code(s): R78.81 - Bacteremia Status: Acute Assessment and Plan: BCx (1of2) positive for gram positive bacilli (aerobic bottle only). WBC was elevated but normalized without abx. No fever or evidence of sepsis. [place] to be contaminant. Add abx and follow up on results. (2) Bone lesion: Code(s): M89.9 - Disorder of bone, unspecified Status: Acute Assessment and Plan: Patient reported unintentional weight loss in December of [address] abdomen and pelvis on 04/04/22 showing osteolytic lesions of the axial skeleton. Chest CT 04/15 showed right adrenal nodule consistent with metastasis. PET scan 05/01 showed mixed lytic and blastic bone lesions possible multiple myeloma, a right adrenal nodule suspicious for metastatic disease. CT guided bone biopsy positive for acid fast bacilli although patients Quantiferon gold test is negative. Differential: infection vs. neoplasm. On presentation, CT Ch/A/P showing interval worsening metastases involving the axial and appendicular skeleton, worsening pathologic fractures and multiple new pulmonary nodules. Patients weakness has progressed to complete LE paralysis. Most likely related to compression but consider paraneoplastic condition. MRI Lumbar showing enhancing marrow lesions suspicious for metastatic disease and moderate central canal stenosis at T11-12. Cervical and Thoracic MRI pending. Neurosurgery and Oncology consulted. The patient is on Megace for the weight loss. Cervical and Thoracic MRI showing Osseous metastatic disease of the cervical spine but no fracture or epidural extension. There is extensive involvement in the thoracic spine vertebral bodies. Pathologic compression fractures of T11 and T12 with significant retropulsion. There is epidural extension of metastatic disease may spinal canal at T10 and possibly T11 result in moderate spinal cord compression. Patient may possibly be transferred to facility with infectious disease specialist but waiting for Oncology to determine best approach Spoke with Neurosurgery and discussed in detail the MRI findings They recommended steroids (Decdron) for cord compression at this time. Patient scheduled to have bone marrow aspiration and biopsy today but was delayed - trying to have this accomplished today. (3) Paraplegia, unspecified: Code(s): G82.20 - Paraplegia, unspecified Status: Acute Assessment and Plan: As above. (4) Hypertension, essential: Code(s): I10 - Essential (primary) hypertension Status: Acute Assessment and Plan: Patient's blood pressure was reviewed on 06/23 Blood pressure remains well controlled. Will continue current medications. (5) Pulmonary nodules: Code(s): R91.8 - Other nonspecific abnormal finding of lung field Status: Acute Assessment and Plan: See above. (6) Impaired glucose tolerance: Code(s): R73.02 - Impaired glucose tolerance (oral) Status: Acute Assessment and Plan: A1c 5.8. The patient's blood glucose was reviewed on 06/23 Glucose remains well controlled. Will stop AccuCheks. (7) Anemia: Code(s): D64.9 - Anemia, unspecified Status: Acute Assessment and Plan: Microcytic anemia noted. Iron 16 with low TIBC 164 (10%). B12 normal. Suspect anemia related to the severity of the bony lesions. May have underlying iron studies. Add iron. (8) Hyponatremia: Code(s): E87.1 - Hypo-osmolality and hyponatremia Status: Acute Assessment and Plan: Na level trending down. Gianna 91 with FENa 0.3%. Could be mixed SIADH and dehydration given the lung nodules and that he is not eating much. Will fluid restrict now and follow. Subjective Date/time seen: 06/23/22 11:59 Interval history: 67yo male with HTN and known bony lesions here for progressive lower extremity wea
[2022-06-23] MEDS: AMPICILLIN SULB 1.5 GM/NS 50ML 1.5 GM/50 ML VIAL IVPB ×2 (14:06→17:52)
[2022-06-23] MEDS: FERROUS SULFATE 324 MG TABLET PO (14:07)
[2022-06-23] MEDS: DEXAMETHASONE SOD PHOS INJ 4 MG/ML VIAL IV PUSH (17:52)
--- NOTE | 2022-06-23 19:01 | WPDONCPN ---
Progress Note: A/P - Additional Plan Multiple bone lytic lesions with pathological fracture. Patient had bone biopsy done and pathology is pending. He is going to have bone marrow aspiration and biopsy tomorrow morning and specimen will be sent for pathology as well as microbiology for mycobacterium culture. I have discussed this case with Dr. Arnav Barrera and Dr. Cueto today. I would recommend transferring him to [facility] after the bone marrow biopsy tomorrow for infectious disease coverage. Paraplegia. MRI findings noted. Neurosurgery recommendation regarding steroid noted. - Time Spent With Patient Total time spent is greater than 50% in coordination of care (as documented) at patient's floor/unit and/or counseling patient: 15 - 25 minutes Subjective Interval history: Diffuse lytic bone lesions concerning for malignancy Review of Systems - Review of Systems Patient is describing bilateral lower extremity weakness. Bone pain is under control. He remains quite tired and fatigued. - Neurologic Reports system reviewed and no additional complaints, except as documented, Reports hearing normal, Reports sensory deficit ( decreased) Exam Vital signs: Temp Pulse Resp BP Pulse Ox O2 Del Method 36.9 C 103 H 18 102/60 99 Room Air 06/23/22 14:00 06/23/22 16:00 06/23/22 14:00 06/23/22 14:00 06/23/22 14:00 06/23/22 08:10 Narrative: Lungs are clear to auscultation bilaterally Cardiovascular regular rate rhythm no murmurs Abdomen soft nontender nondistended bowel sounds are positive Extremities no edema PN: Objective Data - Labs CBC & Chem 7: 06/23/22 06:25 06/23/22 06:25 Labs: Laboratory Results - last 24 hr 06/22/22 06/23/22 06/23/22 20:40 06:25 06:25 WBC 8.1 RBC 3.80 L Hgb 8.4 L Hct 28.9 L MCV 76.1 L MCH 22.1 L MCHC 29.1 L RDW 17.5 H Plt Count 502 H MPV 8.0 Immature Gran % (Auto) 1.0 H Neut % (Auto) 72.1 Lymph % (Auto) 12.7 L Bradley % (Auto) 13.1 H Eos % (Auto) 0.9 Baso % (Auto) 0.2 Lymph # (Auto) 1.03 Bradley # (Auto) 1.1 H Eos # (Auto) 0.1 Baso # (Auto) 0.0 Abs Immat Gran (auto) 0.08 H Absolute Neuts (auto) 5.8 Absolute Nucleated RBC 0.0 Nucleated RBC % 0.0 Sodium 128 L Potassium 3.7 Chloride 95 L Carbon Dioxide 29 Anion Gap 4 L BUN 21 H Creatinine 0.60 L Estim Creat Clear Calc 97 Estimated GFR > 60 Glucose 100 POC Capillary Glucose 191 H Calcium 8.7 Phosphorus 3.2 Magnesium 2.1 Iron TIBC % Saturation Ferritin Total Creatine Kinase < 20 L C-Reactive Protein 21.3 H Albumin 3.2 L Vitamin B12 676.0 Folate TNP Ur Random Sodium Urine Creatinine 06/23/22 06/23/22 06/23/22 06:25 07:54 09:59 WBC RBC Hgb Hct MCV MCH MCHC RDW Plt Count MPV Immature Gran % (Auto) Neut % (Auto) Lymph % (Auto) Bradley % (Auto) Eos % (Auto) Baso % (Auto) Lymph # (Auto) Bradley # (Auto) Eos # (Auto) Baso # (Auto) Abs Immat Gran (auto) Absolute Neuts (auto) Absolute Nucleated RBC Nucleated RBC % Sodium Potassium Chloride Carbon Dioxide Anion Gap BUN Creatinine Estim Creat Clear Calc Estimated GFR Glucose POC Capillary Glucose 101 Calcium Phosphorus Magnesium Iron 16 L TIBC 164 L % Saturation 10 L Ferritin > 2000.00 H Total Creatine Kinase C-Reactive Protein Albumin Vitamin B12 Folate Ur Random Sodium 91 Urine Creatinine 121.9 06/23/22 11:21 WBC RBC Hgb Hct MCV MCH MCHC RDW Plt Count MPV Immature Gran % (Auto) Neut % (Auto) Lymph % (Auto) Bradley % (Auto) Eos % (Auto) Baso % (Auto) Lymph # (Auto) Bradley # (Auto) Eos # (Auto) Baso # (Auto) Abs Immat Gran (auto) Absolute Neuts (auto) Absolute Nucleated RBC Nucleat
--- NOTE | 2022-06-23 23:44 | WPDNEUROSGCN ---
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 I think it is unlikely that this represents an infectious process. A positive this has not been obtained but the patient is scheduled for biopsy tomorrow. It may be this is a tumor that can be radiated drink at. is necessary to obtain tissue for examination to determine what type tumor we are dealing with. Some tumors may be better radiated for multiple reasons. I am pessimistic about Arcenio ability to recover functionally from this. [facility] Past Medical History Medical History Calculus of ureter Enlarged prostate without lower urinary tract symptoms (luts) History of kidney stones Hypertension, essential Impaired glucose tolerance Metabolic syndrome Overweight (BMI 25.0-29.9) Pure hyperglyceridemia Sciatic nerve pain Seasonal rhinitis Unspecified hearing loss Surgical History Surgical History History of bone marrow biopsy History of circumcision History of wisdom tooth extraction Family History Family History Sibling Family history of malignant neoplasm of bone Father , at 78 due to ruptured esophagus No problems noted. Mother , at 94 due to leukemia Leukemia Social History Social History Social History: He lives with . They have no children. allen is his who is the durable power building guard deputy sheriff for healthcare. He is retired from [employer]. code status : full code Smoking status: Never smoker Alcohol intake: current Drinks per week: 0 Alcohol use details: MAY HAVE A DRINK A COUPLE TIMES A YEAR. 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 Gender identity (if verbalized by the patient): Male Spiritual care concerns: No Meds Home Medications and Allergies Home Medications Medication Instructions Recorded Confirmed Type lisinopril 5 mg tablet 5 mg PO DAILY #90 tabs 07/01/21 06/20/22 Rx megestrol 400 mg/10 mL (40 mg/mL) 10 mg PO DAILY 06/20/22 06/20/22 History oral suspension tramadol 50 mg tablet 50 mg PO Q6H 06/20/22 06/20/22 History Allergies Allergy/AdvReac Type Severity Reaction Status Date / Time latex Allergy Mild Skin Verified 06/20/22 13:40 Reaction Vital Signs Vital Signs - 24 hr 06/23/22 00:00 06/23/22 04:00 06/23/22 05:36 Temperature 97.7 F Pulse Rate 100 91 103 H Respiratory Rate 16 Blood Pressure 109/64 Pulse Oximetry 98 Oxygen Delivery 06/23/22 08:00 06/23/22 08:10 06/23/22 12:00 Temperature Pulse Rate 98 130 H Respiratory Rate Blood Pressure Pulse Oximetry Oxygen Delivery Room Air 06/23/22 14:00 06/23/22 16:00 06/23/22 20:00 Temperature 98.5 F Pulse Rate 109 H 103 H 86 Respiratory Rate 18 Blood Pressure 102/60 Pulse Oximetry 99 Oxygen Delivery Exam Narrative: Patient is a normally developed, normal appearing male supine on the hospital bed in no acute distress. Is awake, alert, oriented x3, with good fund knowledge, recall events and alert speech. Space is symme
[2022-06-24] VITALS (7 sets, daily range): BP systolic 118–131; BP diastolic 76–93; PULSE 72–98; RESP 14–16; TEMP 36–36.4; O2SAT 97–100
[2022-06-24] MEDS: DEXAMETHASONE SOD PHOS INJ 4 MG/ML VIAL IV PUSH ×4 (00:07→17:25)
[2022-06-24] MEDS: AMPICILLIN SULB 1.5 GM/NS 50ML 1.5 GM/50 ML VIAL IVPB ×4 (00:07→17:25)
[2022-06-24] MEDS: traMADol HCL (*CRX) 50 MG TABLET PO ×4 (03:07→20:34)
[2022-06-24 06:39] LABS: Basophils Percent Auto 0.1 % (0.2-1.2); Hematocrit 29.8 % (42.0-52.0); Hemoglobin 8.8 g/dL (14.0-18.0); Immature Granulocyte Absolute 0.07 K/mm3 (0.00-0.031); Immature Granulocyte Percent A 0.7 % (0-0.5); Lymphocytes Absolute Auto 0.52 K/mm3 (0.9-3.2); Mean Corpuscular HGB Conc 29.5 g/dl (32-36); Mean Corpuscular Hemoglobin 22.4 pg (26-34); Mean Platelet Volume 8.1 fl (7.4-10.4); Monocytes Absolute Auto 0.5 K/mm3 (0.1-0.6); Monocytes Percent Auto 4.5 % (2.6-8.5); Neutrophils Absolute Auto 9.3 K/mm3 (1.3-6.7); Neutrophils Percent Auto 89.7 % (45.5-73.1); Platelet Count Result 527 k/mm3 (150-375); Red Blood Count 3.92 M/mm3 (4.6-6.20); Red Cell Distribution Width 17.8 % (11.5-14.5); White Blood Count 10.4 K/mm3 (4.5-10.0)
[2022-06-24 06:43] LABS: INR 1.3; Prothrombin Time 16.1 Seconds (11.1-14.7)
[2022-06-24 06:50] LABS: Alanine Aminotransferase 26 U/L (6-50); Albumin Level 3.3 g/dL (3.5-5.1); Alkaline Phosphatase 271 U/L (38-126); Anion Gap 5 mmol/L (8-16); Aspartate Amino Transferase 36 U/L (17-59); Bilirubin,Total 0.5 mg/dL (0.2-1.3); Blood Urea Nitrogen 23 mg/dL (9-20); Calcium 8.8 mg/dL (8.4-10.2); Carbon Dioxide 28 mmol/L (22-30); Chloride 97 mmol/L (98-107); Estimated CRCL calculation 114 ml/min; Estimated Glomerular Filt Rate > 60; Glucose 161 mg/dL (65-110); Potassium 4.6 mmol/L (3.4-5.0); Sodium 130 mmol/L (137-145)
[2022-06-24] MEDS: HYDROmorphone HCL INJ (*CRX) 1 MG/ML SYR 2 MG IV PUSH (08:10)
--- NOTE | 2022-06-24 08:45 | WPDMODSED ---
Moderate Sedation Note-Pt Data Patient Data Diagnosis: unkownl lytic bone lesions Present Complaint: indeterminate lytic bone lesions and paraplegia Procedure to be performed/Plan: bone marrow biopsy Allergies Allergy/AdvReac Type Severity Reaction Status Date / Time latex Allergy Mild Skin Verified 06/20/22 13:40 Reaction Home Medications Medication Instructions Recorded Confirmed Type lisinopril 5 mg tablet 5 mg PO DAILY #90 tabs 07/01/21 06/20/22 Rx megestrol 400 mg/10 mL (40 mg/mL) 10 mg PO DAILY 06/20/22 06/20/22 History oral suspension tramadol 50 mg tablet 50 mg PO Q6H 06/20/22 06/20/22 History Current Medications: Active Medications Acetaminophen (Acetaminophen 325 Mg Tablet) 650 mg PO Q6H PRN PRN Reason: Mild Pain (1-3) or Fever Last Admin: 06/22/22 13:20 Dose: 650 mg Dexamethasone Sodium Phosphate (Dexamethasone Sod Phos Inj 4 Mg/Ml Vial) 4 mg IV PUSH Q6HR [facility] Last Admin: 06/24/22 05:28 Dose: 4 mg Dextrose (Dextrose 50% 25 Gm/50 Ml Syringe) 12.5 gm IV PUSH PRN PRN; Protocol PRN Reason: Hypoglycemia Enoxaparin Sodium (Enoxaparin 40 Mg/0.4 Ml Syringe) 40 mg SUB-Q DAILY@1800 [facility] Last Admin: 06/22/22 17:04 Dose: 40 mg Ferrous Sulfate (Ferrous Sulfate 324 Mg Tablet) 324 mg PO DAILY@0800 [facility] Last Admin: 06/23/22 14:07 Dose: 324 mg Glucagon (Glucagon For Inj 1 Mg Vial) 1 mg IM PRN PRN; Protocol PRN Reason: Hypoglycemia Glucose (Glucose Oral Gel 15 Gm Of Glucse In 37.5 Gm Tube) 15 gm PO PRN PRN; Protocol PRN Reason: Hypoglycemia Dextrose (Dextrose 5% 1,000 Ml) 1,000 mls @ 100 mls/hr IVPB PRN PRN; Protocol PRN Reason: Hypoglycemia Ampicillin Sodium/Sulbactam Sodium (Unasyn 1.5 Gm/Ns 50 Ml) 1.5 gm in 50 mls @ 100 mls/hr IVPB Q6HR [facility] Last Admin: 06/24/22 05:28 Dose: 100 mls/hr Vancomycin HCl (Vancomycin 1,250 Mg/D5w 250 Ml) 1,250 mg in 250 mls @ 200 mls/hr IVPB Q12H [facility] Last Admin: 06/24/22 00:54 Dose: 200 mls/hr Lisinopril (Lisinopril 5 Mg Tablet) 5 mg PO DAILY [facility] Last Admin: 06/23/22 08:09 Dose: 5 mg Lorazepam (Lorazepam Inj (*Crx) 2 Mg/Ml Vial) 1 mg IV PUSH Q6H PRN PRN Reason: Anxiety Megestrol Acetate (Megestrol Acetate (*Chemo) Oral Susp 40 Mg/Ml Syr) 400 mg PO DAILY [facility] Stop: 07/21/22 08:59 Last Admin: 06/23/22 08:09 Dose: 400 mg Ondansetron HCl (Ondansetron Inj 4 Mg/2 Ml Vial) 4 mg IV PUSH Q4H PRN PRN Reason: Nausea Sodium Chloride (Sodium Chloride 500 Mg Tablet) 500 mg PO BID [facility] Last Admin: 06/23/22 17:52 Dose: 500 mg Tramadol HCl (Tramadol Hcl (*Crx) 50 Mg Tablet) 50 mg PO Q6H PRN PRN Reason: Pain Rated 4-6 Last Admin: 06/20/22 18:57 Dose: 50 mg Tramadol HCl (Tramadol Hcl (*Crx) 50 Mg Tablet) 50 mg PO Q6H [facility] Last Admin: 06/24/22 03:07 Dose: 50 mg Sedation/Anesthesia: No previous sedation/anesthesia problems (including family history). [facility] Past Medical History Medical History Calculus of ureter Enlarged prostate without lower urinary tract symptoms (luts) History of kidney stones Hypertension, essential Impaired glucose tolerance Metabolic syndrome Overweight (BMI 25.0-29.9) Pure hyperglyceridemia Sciatic nerve pain Seasonal rhinitis Unspecified hearing loss Surgical History Surgical History History of bone marrow biopsy History of circumcision History of wisdom tooth extraction Family History Family History Sibling Family history of malignant neoplasm of bone Father , at 78 due to ruptured esophagus No problems noted. Mother , at 94 due to leukemia Leukemia Social History Social History Social History: He lives with . They have no children. allen is his who is the durable power personal injury attorney for healthcare. He is retired from [employer].
[2022-06-24] MEDS: FERROUS SULFATE 324 MG TABLET PO (10:18)
[2022-06-24] MEDS: SODIUM CHLORIDE 500 MG TABLET PO ×2 (10:18→17:26)
[2022-06-24] MEDS: lisinopriL 5 MG TABLET PO (10:18)
--- NOTE | 2022-06-24 12:28 | PM.IMPN ---
Progress Note: A&P Assessment and Plan (1) Bacteremia: Code(s): R78.81 - Bacteremia Status: Acute Assessment and Plan: BCx (1of2) positive for gram positive bacilli (aerobic bottle only). WBC was elevated but normalized without abx. No fever or evidence of sepsis. [place] to be contaminant. Abx added given the current issues. Bone biopsy on 06/20: negative for AFB stain. Bone fungal Cx NGTD. Bone bacterial Cx NGTD. (2) Bone lesion: Code(s): M89.9 - Disorder of bone, unspecified Status: Acute Assessment and Plan: Patient reported unintentional weight loss in December of [address] abdomen and pelvis on 04/04/22 showing osteolytic lesions of the axial skeleton. Chest CT 04/15 showed right adrenal nodule consistent with metastasis. PET scan 05/01 showed mixed lytic and blastic bone lesions possible multiple myeloma, a right adrenal nodule suspicious for metastatic disease. CT guided bone biopsy positive for acid fast bacilli although patients Quantiferon gold test is negative. Differential: infection vs. neoplasm. On presentation, CT Ch/A/P showing interval worsening involving the axial and appendicular skeleton, worsening pathologic fractures and multiple new pulmonary nodules. MRI Lumbar showing enhancing marrow lesions suspicious for metastatic disease and moderate central canal stenosis at T11-12. Cervical and Thoracic MRI showing Osseous metastatic disease of the cervical spine but no fracture or epidural extension. There is extensive involvement in the thoracic spine vertebral bodies. Pathologic compression fractures of T11 and T12 with significant retropulsion. There is epidural extension of metastatic disease may spinal canal at T10 and possibly T11 result in moderate spinal cord compression. Patients weakness has progressed to complete LE paralysis related to compression Neurosurgery and Oncology consulted. The patient is on Megace for the weight loss. Called to try to transfer this patient to tertiary care for ID consult. Spoke with Neurosurgery and discussed in detail the MRI findings They recommended steroids (Decdron) for cord compression which was started 06/23 Patient had bone marrow aspiration and bone biopsy today; Follow up on results. (3) Paraplegia, unspecified: Code(s): G82.20 - Paraplegia, unspecified Status: Acute Assessment and Plan: As above. (4) Hypertension, essential: Code(s): I10 - Essential (primary) hypertension Status: Acute Assessment and Plan: Patient's blood pressure was reviewed on 06/24 Blood pressure remains well controlled. Will continue current medications. (5) Pulmonary nodules: Code(s): R91.8 - Other nonspecific abnormal finding of lung field Status: Acute Assessment and Plan: See above. (6) Impaired glucose tolerance: Code(s): R73.02 - Impaired glucose tolerance (oral) Status: Acute Assessment and Plan: A1c 5.8. The patient's blood glucose was reviewed on 06/24 Glucose remained well controlled so we stopped AccuCheks. (7) Anemia: Code(s): D64.9 - Anemia, unspecified Status: Acute Assessment and Plan: Microcytic anemia noted. Iron 16 with low TIBC 164 (10%). B12 normal. Suspect anemia related to the severity of the bony lesions. (8) Hyponatremia: Code(s): E87.1 - Hypo-osmolality and hyponatremia Status: Acute Assessment and Plan: Na level was trending down. Gianna 91 with FENa 0.3%. Could be mixed SIADH and dehydration given the lung nodules and that he is not eating much. Fluid restricted. Na better today at 130. Follow. Subjective Date/time seen: 06/24/22 12:28 Interval history: 67yo male with HTN and known bony lesions here for progressive lower extremity weakness and back pain. No changes in the LE paralysis. He feels well otherwise. Eating reasonably well. No other complai
--- NOTE | 2022-06-24 12:47 | WPDONCPN ---
Progress Note: A/P - Additional Plan Multiple bone lytic lesion with pathological fracture now status post bone marrow aspiration and biopsy done today. Pathology report is pending. I think he will be better served at [facility] or [facility] where he can have ID service consultation available. I have discussed this case with Dr. Cueto regarding transferring to [facility]. Paraplegia. Patient is on steroid. No change in clinical status. - Time Spent With Patient Total time spent is greater than 50% in coordination of care (as documented) at patient's floor/unit and/or counseling patient: 15 - 25 minutes Subjective Interval history: Diffuse lytic bone lesions concerning for malignancy Review of Systems - Review of Systems Patient came back from the bone marrow biopsy. He seems to be quite comfortable. Denies any bone pain at this time unless she moves. He still have weakness in the lower extremity. No other new complaints. - Neurologic Reports system reviewed and no additional complaints, except as documented, Reports hearing normal, Reports sensory deficit ( decreased) Exam Narrative: Lungs are clear to auscultation bilaterally Cardiovascular regular rate rhythm no murmurs Abdomen soft nontender nondistended bowel sounds are positive Extremities no edema PN: Objective Data - Labs CBC & Chem 7: 06/24/22 06:27 06/24/22 06:27 Labs: Laboratory Results - last 24 hr 06/24/22 06/24/22 06/24/22 06:27 06:27 06:27 WBC 10.4 H RBC 3.92 L Hgb 8.8 L Hct 29.8 L MCV 76.0 L MCH 22.4 L MCHC 29.5 L RDW 17.8 H Plt Count 527 H MPV 8.1 Immature Gran % (Auto) 0.7 H Neut % (Auto) 89.7 H Lymph % (Auto) 5.0 L Otero % (Auto) 4.5 Eos % (Auto) 0.0 Baso % (Auto) 0.1 L Lymph # (Auto) 0.52 L Oter[place] # (Auto) 0.5 Eos # (Auto) 0.0 Baso # (Auto) 0.0 Abs Immat Gran (auto) 0.07 H Absolute Neuts (auto) 9.3 H Absolute Nucleated RBC 0.0 Nucleated RBC % 0.0 PT 16.1 H INR 1.3 Sodium 130 L Potassium 4.6 Chloride 97 L Carbon Dioxide 28 Anion Gap 5 L BUN 23 H Creatinine 0.50 L Estim Creat Clear Calc 114 Estimated GFR > 60 Glucose 161 H Calcium 8.8 Total Bilirubin 0.5 AST 36 ALT 26 Alkaline Phosphatase 271 H Total Protein 7.0 Albumin 3.3 L
[2022-06-24] MEDS: ENOXAPARIN 40 MG/0.4 ML SYRINGE SUB-Q (13:07)
--- NOTE | 2022-06-24 18:23 | PM.TDS ---
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 Has provider been notified: Yes 06/20/22 14:17 Consult Infectious Disease Pharmacist Routine Comment: 06/21/22 12:33 Consult to Physician Routine Comment: Spoke to 2..23 @ 1356--/us Consulting Provider: Mariano Mccray director call center sales/MD group to consult: neurology Reason for consultation: ascending paralysis Has provider been notified: Yes DS: Admitting Diagnosis Discharge Date 06/24/22 Admitting Diagnosis Weakness DS: Discharge Diagnosis Discharge Diagnosis (1) Bacteremia: Code(s): R78.81 - Bacteremia Status: Acute (2) Bone lesion: Code(s): M89.9 - Disorder of bone, unspecified Status: Acute (3) Paraplegia, unspecified: Code(s): G82.20 - Paraplegia, unspecified Status: Acute (4) Hypertension, essential: Code(s): I10 - Essential (primary) hypertension Status: Acute (5) Pulmonary nodules: Code(s): R91.8 - Other nonspecific abnormal finding of lung field Status: Acute (6) Impaired glucose tolerance: Code(s): R73.02 - Impaired glucose tolerance (oral) Status: Acute (7) Anemia: Code(s): D64.9 - Anemia, unspecified Status: Acute (8) Hyponatremia: Code(s): E87.1 - Hypo-osmolality and hyponatremia Status: Acute Transfer Discharge Sum: Med Medications Active and Home Medications: Home Medications lisinopril 5 mg tablet 5 mg PO DAILY #90 tabs 07/01/21 [Rx Confirmed 06/20/22] megestrol 400 mg/10 mL (40 mg/mL) oral suspension 10 mg PO DAILY 06/20/22 [History Confirmed 06/20/22] tramadol 50 mg tablet 50 mg PO Q6H 06/20/22 [History Confirmed 06/20/22] Active Medications Acetaminophen (Acetaminophen 325 Mg Tablet) 650 mg PO Q6H PRN PRN Reason: Mild Pain (1-3) or Fever Last Admin: 06/22/22 13:20 Dose: 650 mg Dexamethasone Sodium Phosphate (Dexamethasone Sod Phos Inj 4 Mg/Ml Vial) 4 mg IV PUSH Q6HR [facility] Last Admin: 06/24/22 17:25 Dose: 4 mg Dextrose (Dextrose 50% 25 Gm/50 Ml Syringe) 12.5 gm IV PUSH PRN PRN; Protocol PRN Reason: Hypoglycemia Enoxaparin Sodium (Enoxaparin 40 Mg/0.4 Ml Syringe) 40 mg SUB-Q DAILY [facility] Ferrous Sulfate (Ferrous Sulfate 324 Mg Tablet) 324 mg PO DAILY@0800 [facility] Last Admin: 06/24/22 10:18 Dose: 324 mg Glucagon (Glucagon For Inj 1 Mg Vial) 1 mg IM PRN PRN; Protocol PRN Reason: Hypoglycemia Glucose (Glucose Oral Gel 15 Gm Of Glucse In 37.5 Gm Tube) 15 gm PO PRN PRN; Protocol PRN Reason: Hypoglycemia Dextrose (Dextrose 5% 1,000 Ml) 1,000 mls @ 100 mls/hr IVPB PRN PRN; Protocol PRN Reason: Hypoglycemia Ampicillin Sodium/Sulbactam Sodium (Unasyn 1.5 Gm/Ns 50 Ml) 1.5 gm in 50 mls @ 100 mls/hr IVPB Q6HR [facility] Last Admin: 06/24/22 17:25 Dose: 100 mls/hr Vancomycin HCl (Vancomycin 1,250 Mg/D5w 250 Ml) 1,250 mg in 250 mls @ 200 mls/hr IVPB Q12H [facility] Last Admin: 06/24/22 13:07 Dose: 200 mls/hr Lisinopril (Lisinopril 5 Mg Tablet) 5 mg PO DAILY [facility] Last Admin: 06/24/22 10:18 Dose: 5 mg Lorazepam (Lorazepam Inj (*Crx) 2 Mg/Ml Vial) 1 mg IV PUSH Q6H PRN PRN Reason: Anxiety Megestrol Acetate (Megestrol Acetate (*Chemo) Oral Susp 40 Mg/Ml Syr) 400 mg PO DAILY [facility] Stop: 07/21/22 08:59 Last Admin: 06/24/22 10:18 Dose: Not Given Ondansetron HCl (Ondansetron Inj 4 Mg/2 Ml Vial) 4 mg IV PUSH Q4H PRN PRN Reason: Nausea Sodium Chloride (Sodium Chloride 500 Mg Tablet) 500 mg PO BID ALEX Last Admin: 06/24/22 17:26 Dose: 500 mg Tramadol HCl (Tramadol Hcl (*Crx) 50 Mg Tablet) 50 mg PO Q6H PRN PRN Reason: Pain Rated 4-6 Last Admin: 06/20/22 18:57 Dose: 50 mg Tramadol HCl (Tramadol Hcl (*Crx) 50
[2022-06-28 22:57] LABS: Creatinine, Random Urine 117 mg/dL (20-320); Total Protein/Creatinine Ratio 214 mg/g creat (25-148)
[2022-06-30 23:33] LABS: Soluble Transferrin Receptor 1.91 mg/L (0.76-1.76)
== END 2022-06-24 22:39 | disposition short-term general hospital (02) | DRG 565 ==
LOC: ANHED 09:57 → ANH3MEDSUR 15:04
PROVIDERS: Emergency Medicine; Internal Medicine Critical Care Medicine; Nurse Practitioner; Radiology Diagnostic Radiology; Admitting Provider Family Medicine; Emergency Provider Physician Assistant; PCP Family Medicine; Visit Provider Internal Medicine
PROC: 07DT3ZX Extraction of Bone Marrow, Percutaneous Approach, Diagnostic (ICD-10-PCS; CPT 38220; principal; 2022-06-24 08:30)
DX: M89.9 Disorder of bone, unspecified (principal); E87.1 Hypo-osmolality and hyponatremia; G82.20 Paraplegia, unspecified; R78.81 Bacteremia; M84.68XA Pathological fracture in other disease, other site, initial encounter for fracture; G95.20 Unspecified cord compression; I10 Essential (primary) hypertension; R91.8 Other nonspecific abnormal finding of lung field; R73.02 Impaired glucose tolerance (oral); D64.9 Anemia, unspecified; K59.00 Constipation, unspecified; G83.14 Monoplegia of lower limb affecting left nondominant side; G83.11 Monoplegia of lower limb affecting right dominant side; Z20.822 Contact with and (suspected) exposure to COVID-19; Z79.899 Other long term (current) drug therapy; Z91.040 Latex allergy status
CPT/HCPCS: 20220; 36415; 38220; 51701; 71045; 71275; 72156; 72157; 72158; 74177; 77012; 80053; 80069; 81001; 82550; 82570; 82607; 82728; 82746; 82948; 83036; 83540; 83550; 83605; 83615; 83690; 83735; 84100; 84156; 84166; 84238; 84300; 84484; 85025; 85610; 85730; 86140; 86334; 86335; 86703; 87015; 87040; 87070; 87075; 87077; 87102; 87116; 87205; 87206; 87385; 87636; 88184; 88185; 88305; 88307; 88311; 88312; 88313; 88341; 88342; 88364; 88365; 93005; 96361; 96365; 96372; 96374; 96375; 99285; A9270; A9577; G0378; G0432; J0295; J1100; J1170; J1642; J1650; J2250; J2405; J3010; J3370; J7030; J7040; Q9967